=== PATIENT | female | born 1975 | race American Indian/Alaskan Native ===

== ENCOUNTER 2016-07-12 18:19 | Emergency (ER) | payer MEDICARE ==
[2016-07-12] MEDS ORDERED: TORADOL IV ONE (20:14)
[2016-07-12] MEDS ORDERED: DILAUDID IV ONE (20:14)
[2016-07-12] MEDS ORDERED: NACL 0.9% 1000 ML 1,000 ML IV ONE (20:14)
[2016-07-12] MEDS ORDERED: ZOFRAN IV ONE (20:14)
[2016-07-12] MEDS ORDERED: NORMODYNE IV ONE (20:31)
--- NOTE | 2016-07-12 20:32 | Emergency Department Report ---
ED Abdominal Pain HPI - General Chief Complaint: Abdominal Pain Stated Complaint: ABD PAIN Time Seen by Provider: 07/12/16 19:50 Source: patient, police Mode of arrival: Stretcher Limitations: No Limitations - History of Present Illness MD Complaint: abdominal pain -: Gradual Radiation: none Severity scale (0 -10): 4 Quality: cramping, aching Consistency: intermittent Improves With: nothing Worsens With: nothing Associated Symptoms: nausea, vomiting. denies: diarrhea, fever, chills, constipation, hematuria, anorexia - Related Data Previous Rx's Medication Instructions Recorded Last Taken Type Glimepiride 1 mg PO DAILY #60 tablet 07/12/16 Unknown Rx Insulin Glargine [Lantus VIAL] 12 unit SUB-Q QHS #30 units 07/12/16 Unknown Rx cloNIDine [Catapres] 0.2 mg PO BID #60 tablet 07/12/16 Unknown Rx Allergies Allergy/AdvReac Type Severity Reaction Status Date / Time bee venom (honey bee) Allergy Severe Anaphylaxis Verified 11/11/15 22:01 ED Review of Systems ROS: Stated complaint: ABD PAIN Other details as noted in HPI Comment: All other systems reviewed and negative ED Past Medical Hx - Past Medical History Hx Hypertension: Yes Hx Congestive Heart Failure: No Hx Diabetes: (GDM) Hx Deep Vein Thrombosis: No Hx Renal Disease: No Hx Sickle Cell Disease: No Hx Seizures: No Hx Psychiatric Treatment: Yes (anxiety) Hx Asthma: No Hx COPD: No Hx HIV: No Additional medical history: SICKLE CELL TRAIT - Surgical History Additional Surgical History: 4 c-sections - Social History Smoking Status: Never Smoker Substance Use Type: Alcohol - Medications Home Medications: Home Medications Medication Instructions Recorded Confirmed Last Taken Type Glimepiride 1 mg PO DAILY #60 tablet 07/12/16 Unknown Rx Insulin Glargine [Lantus VIAL] 12 unit SUB-Q QHS #30 units 07/12/16 Unknown Rx cloNIDine [Catapres] 0.2 mg PO BID #60 tablet 07/12/16 Unknown Rx ED Physical Exam - General Limitations: No Limitations General appearance: alert, in no apparent distress - Head Head exam: Present: atraumatic, normocephalic - Eye Eye exam: Present: normal appearance - ENT ENT exam: Present: mucous membranes moist - Neck Neck exam: Present: normal inspection - Respiratory Respiratory exam: Present: normal lung sounds bilaterally. Absent: respiratory distress - Cardiovascular Cardiovascular Exam: Present: regular rate, normal rhythm. Absent: systolic murmur, diastolic murmur, rubs, gallop - GI/Abdominal GI/Abdominal exam: Present: soft, tenderness, normal bowel sounds. Absent: distended, guarding, rebound, rigid - Extremities Exam Extremities exam: Present: normal inspection - Back Exam Back exam: Present: normal inspection - Neurological Exam Neurological exam: Present: alert, oriented X3 - Psychiatric Psychiatric exam: Present: normal affect, normal mood - Skin Skin exam: Present: warm, dry, intact, normal color. Absent: rash ED Course Vital Signs 07/12/16 07/12/16 07/12/16 19:24 22:11 22:12 Temperature 97.6 F Pulse Rate 83 Respiratory 20 20 Rate Blood Pressure 187/112 O2 Sat by Pulse 98 Oximetry 07/12/16 22:13 Temperature Pulse Rate 90 Respiratory Rate Blood Pressure 145/112 O2 Sat by Pulse Oximetry ED Medical Decision Making - Lab Data Result diagrams: 07/12/16 20:27 07/12/16 20:27 - Medical Decision Making Patient doing well, tolerating po here in the ER, labs negative except for hyperglycemia , ct abd and pelvis with no acute findings, Will dc and follow up, need close follow up for her DM and HTN Critical care attestation.: If time is entered above; I have spent that time in minutes in the direct care of this critically ill patient, excluding procedure time. ED Disposition Clinical Impression: Uncontrolled hypertension, Abdominal pain Disposition: DISCHARGED TO HOME OR SELFCARE Is pt being admited?: No Does the pt Need Aspirin: No Condition: Good Instructions: Abdominal Pain (ED), Hypertension (ED) Prescriptions: Insulin Glargine [Lantus VIAL] 12 unit SUB-Q QHS #30 units cloNIDine [Catapres] 0.2 mg PO BID #60 tablet Glimepiride 1 mg PO DAILY #60 tablet Referrals: PRIMARY CARE,MD [Primary Care Provider] - 3-5 Days
[2016-07-12 20:41] LABS: Basophils % (Auto) 1.2 % (0.0-1.8); Eosinophils % (Auto) 0.9 % (0.0-4.3); Hematocrit 44.5 % (30.3-42.9); Hemoglobin 15.1 gm/dl (10.1-14.3); Mean Corpuscular HGB Conc 34 % (30-34); Mean Corpuscular Hemoglobin 30 pg (28-32); Mean Corpuscular Volume 87 fl (79-97); Platelet Count 205 K/mm3 (140-440); Red Blood Count 5.09 M/mm3 (3.65-5.03); Red Cell Distribution Width 13.6 % (13.2-15.2); White Blood Count 7.6 K/mm3 (4.5-11.0)
[2016-07-12 20:47] LABS: Bilirubin,Urine NEG (Negative); Blood,Urine NEG (Negative); Ketones,Urine TR mg/dL (Negative); Leukocyte Esterase,Urine NEG (Negative); Nitrite,Urine NEG (Negative); Protein,Urine <15 mg/dL mg/dL (Negative); Urobilinogen,Urine < 2.0 mg/dL (<2.0)
[2016-07-12 21:04] LABS: Anion Gap 20 mmol/L; Blood Urea Nitrogen 10 mg/dL (7-17); Carbon Dioxide 26 mmol/L (22-30); Chloride 95.2 mmol/L (98-107); Glucose 396 mg/dL (65-100); Lipase 13 units/L (13-60); Sodium 137 mmol/L (137-145)
--- NOTE | 2016-07-12 22:05 | Cat Scan Report ---
FINAL REPORT PROCEDURE: CT ABDOMEN PELVIS WO CON TECHNIQUE: Computerized axial tomography of the abdomen and pelvis was performed without intravenous contrast. HISTORY: Abdominal Pain COMPARISON: No prior studies are available for comparison. FINDINGS: Visualized lower thorax: No significant abnormality. Liver: Enlargement. No focal mass or biliary dilatation. Spleen: Normal size and attenuation. Gallbladder and biliary system: Normal. Pancreas: Normal. Adrenals: Normal. Kidneys: Normal. GI tract: Normal. No dilated loops of large or small bowel. Appendix is normal. Lymph nodes and mesentery: Normal. Vasculature: Normal. Bladder: Normal. Reproductive organs: Normal uterus. Left adnexal cyst measuring 3.5 cm. Peritoneum: No free fluid. Musculoskeletal structures: No significant abnormality. Other: None. IMPRESSION: Hepatomegaly. No biliary dilatation. Left adnexal cyst. No dilated loops of bowel.
[2016-07-13 00:10] VITALS: BP 149/88
== END 2016-07-13 | disposition home or self-care (01) ==
LOC: ED 18:19
DX: I10 Essential (primary) hypertension (principal); R10.9 Unspecified abdominal pain; F41.9 Anxiety disorder, unspecified; Z86.32 Personal history of gestational diabetes; Z91.030 Bee allergy status; Z79.4 Long term (current) use of insulin
CPT/HCPCS: 36415; 74176; 80048; 81001; 82962; 83690; 85025; 96361; 96374; 96375; 99284; J1170; J1885; J2405; J7030; J1815

== ENCOUNTER 2016-07-17 22:01 | Emergency (ER) | payer MEDICARE ==
[2016-07-18] MEDS ORDERED: FLEXERIL PO ONE (04:00)
[2016-07-18] MEDS ORDERED: MOTRIN PO ONE (04:00)
[2016-07-18] MEDS ORDERED: NORCO 5/325 PO ONE (04:00)
--- NOTE | 2016-07-18 04:40 | XRay Report ---
FINAL REPORT PROCEDURE: XR SPINE LUMBOSACRAL 2-3V TECHNIQUE: Lumbar spine radiographs, frontal and lateral views. CPT 44457 HISTORY: midline tenderness COMPARISON: No prior studies are available for comparison. FINDINGS: Alignment: Normal . Vertebral body heights/Disk spaces: Normal . Fracture(s): None . Facets: Normal . Bone mineralization: Normal . IMPRESSION: Normal Examination
--- NOTE | 2016-07-18 04:56 | Emergency Department Report ---
HPI - General Chief Complaint: Back Pain/Injury Time Seen by Provider: 07/18/16 03:55 - HPI HPI: 41-year-old female presents today with lower back pain that worsened when she lifted her son prior to arrival. Past history history of chronic back pain. Denies any recent injury or trauma. Describes her pain as 10 as tense stabbing pain that is worse with walking. He tried icy hot, Benadryl, hot water soaks without relief. Denies fever, chills, nausea, vomiting, chest pain, shortness of breath, abdominal pain. Denies numbness, weakness, paresthesias. Denies bowel or bladder incontinence. ED Past Medical Hx - Past Medical History Previous Medical History?: Yes Hx Hypertension: Yes Hx Congestive Heart Failure: No Hx Diabetes: (GDM) Hx Deep Vein Thrombosis: No Hx Renal Disease: No Hx Sickle Cell Disease: No Hx Seizures: No Hx Psychiatric Treatment: Yes (anxiety) Hx Asthma: No Hx COPD: No Hx HIV: No Additional medical history: SICKLE CELL TRAIT - Surgical History Past Surgical History?: Yes Additional Surgical History: 4 c-sections - Social History Smoking Status: Never Smoker Substance Use Type: Alcohol - Medications Home Medications: Home Medications Medication Instructions Recorded Confirmed Last Taken Type Glimepiride 1 mg PO DAILY #60 tablet 07/12/16 Unknown Rx Insulin Glargine [Lantus VIAL] 12 unit SUB-Q QHS #30 units 07/12/16 Unknown Rx cloNIDine [Catapres] 0.2 mg PO BID #60 tablet 07/12/16 Unknown Rx Cyclobenzaprine [Flexeril] 10 mg PO TID PRN #20 tablet 07/18/16 Unknown Rx Naproxen [Naprosyn] 500 mg PO BID #30 tablet 07/18/16 Unknown Rx ED Review of Systems ROS: Stated complaint: LOWER BACK PAIN Other details as noted in HPI Constitutional: denies: chills, fever, malaise Eyes: denies: eye pain ENT: denies: ear pain, throat pain, congestion Respiratory: denies: cough, shortness of breath, wheezing Cardiovascular: denies: chest pain, palpitations Endocrine: no symptoms reported Gastrointestinal: denies: abdominal pain, nausea, vomiting Musculoskeletal: back pain Neurological: denies: headache, weakness, numbness, paresthesias Physical Exam - Physical Exam Vital Signs: Vital Signs 07/17/16 22:40 Temperature 97.9 F Pulse Rate 96 H Respiratory 18 Rate Blood Pressure 149/78 O2 Sat by Pulse 97 Oximetry Physical Exam: GENERAL: The patient is well-developed and well-nourished. Patient is in NAD. HEAD: Normocephalic. Atraumatic. NECK: Full range of motion. No midline or paraspinal tenderness to palpation. BACK: Full ROM. Positive for midline tenderness to palpation of lumbar region. Positive for paraspinal tenderness to palpation of the lumbar region bilaterally. No tenderness to palpation of sciatic notch bilaterally. Negative straight leg raise bilaterally. CHEST/LUNGS: Clear to auscultation throughout. HEART/CARDIOVASCULAR: Regular rate and rhythm. No murmurs, rubs or gallops. ABDOMEN: Abdomen is soft, nontender. Bowel sounds normoactive. No guarding or rebound tenderness. EXTREMITIES: Peripheral pulses intact. Capillary refill less than 2 seconds. NEURO: Alert and oriented x 3. Normal gait. ED Course Vital Signs 07/17/16 22:40 Temperature 97.9 F Pulse Rate 96 H Respiratory 18 Rate Blood Pressure 149/78 O2 Sat by Pulse 97 Oximetry ED Medical Decision Making - Lab Data Vital Signs 07/17/16 22:40 Temperature 97.9 F Pulse Rate 96 H Respiratory 18 Rate Blood Pressure 149/78 O2 Sat by Pulse 97 Oximetry - Radiology Data Radiology results: report reviewed PROCEDURE: XR SPINE LUMBOSACRAL 2-3V TECHNIQUE: Lumbar spine radiographs, frontal and lateral views. CPT 59445 HISTORY: midline tenderness COMPARISON: No prior studies are available for comparison. FINDINGS: Alignment: Normal . Vertebral body heights/Disk spaces: Normal . Fracture(s): None . Facets: Normal . Bone mineralization: Normal . IMPRESSION: Normal Examination - Medical Decision Making 41-year-old female presents today with acute onset of chronic lower back pain. Her x-ray results reveal no fracture or dislocation. Patient reports pain control post medication. Patient is in no acute distress at this time. She will be discharged home and is encouraged to follow up with a primary care provider. She will be sent home on Flexeril and naproxen and is encouraged to return to the emergency room for any worsening symptoms. Critical care attestation.: If time is entered above; I have spent that time in minutes in the direct care of this critically ill patient, excluding procedure time. ED Disposition Clinical Impression: Low back pain Qualifiers: Chronicity: chronic Back pain laterality: midline Sciatica presence: without sciatica Qualified Code(s): M54.5 - Low back pain; G89.29 - Other chronic pain Disposition: DISCHARGED TO HOME OR SELFCARE Is pt being admited?: No Does the pt Need Aspirin: No Condition: Stable Instructions: Chronic Back Pain (ED), Muscle Strain (ED) Additional Instructions: Follow-up with primary care provider. Return to the emergency department if symptoms worsen. Prescriptions: Cyclobenzaprine [Flexeril] 10 mg PO TID PRN #20 tablet PRN Reason: Muscle Spasm Naproxen [Naprosyn] 500 mg PO BID #30 tablet Referrals: LEIGHANN JAUREGUI MD [Primary Care Provider] - 3-5 Days LELE HAMMER MD [Staff Physician] - 3-5 Days Forms: Work/School Release Form(ED) Time of Disposition: 04:59
[2016-07-18 05:27] VITALS: BP 107/76
== END 2016-07-18 05:26 | disposition home or self-care (01) ==
LOC: ED 22:01
DX: M54.5 Low back pain (principal); G89.29 Other chronic pain; I10 Essential (primary) hypertension; F41.9 Anxiety disorder, unspecified; Z86.32 Personal history of gestational diabetes; Z79.4 Long term (current) use of insulin
CPT/HCPCS: 72100

== ENCOUNTER 2016-12-19 21:07 | Emergency (ER) | payer MEDICARE ==
[2016-12-19 21:28] LABS: Eosinophils % (Auto) 1.1 % (0.0-4.3); Hemoglobin 13.9 gm/dl (10.1-14.3); Mean Corpuscular HGB Conc 34 % (30-34); Mean Corpuscular Hemoglobin 31 pg (28-32); Mean Corpuscular Volume 91 fl (79-97); Platelet Count 299 K/mm3 (140-440); Red Blood Count 4.53 M/mm3 (3.65-5.03); Red Cell Distribution Width 13.9 % (13.2-15.2); White Blood Count 10.2 K/mm3 (4.5-11.0)
[2016-12-19] MEDS ORDERED: CATAPRES PO ONE (21:43)
[2016-12-19 21:44] LABS: Anion Gap 16 mmol/L; Blood Urea Nitrogen 9 mg/dL (7-17); Calcium 9.3 mg/dL (8.4-10.2); Carbon Dioxide 29 mmol/L (22-30); Chloride 101.4 mmol/L (98-107); Glucose 89 mg/dL (65-100); Potassium 4.1 mmol/L (3.6-5.0); Sodium 142 mmol/L (137-145)
[2016-12-19 22:26] LABS: Bacteria,Urine 1+ /HPF (Negative); Bilirubin,Urine NEG (Negative); Blood,Urine NEG (Negative); Ketones,Urine NEG (Negative); Leukocyte Esterase,Urine NEG (Negative); Nitrite,Urine NEG (Negative); Protein,Urine <15 mg/dL mg/dL (Negative)
[2016-12-20] MEDS ORDERED: CATAPRES PO ONE (05:06)
[2016-12-20] MEDS ORDERED: CATAPRES ONE (05:08)
--- NOTE | 2016-12-20 06:19 | Emergency Department Report ---
HPI - General Chief Complaint: Abdominal Pain Time Seen by Provider: 12/20/16 06:07 - HPI HPI: Room 3 The patient is a 41-year-old female presented with a chief complaint of headache and abdominal pain. The patient states that she has today she's had intermittent midepigastric abdominal pain in addition to intermittent frontal headache. Patient denies nausea vomiting or diarrhea. Patient denies shortness of breath or diaphoresis. Patient denies ever having chest pain. The patient currently gives her abdominal pain score 6.5/10. Patient denies any history of fever. Location: [see above] Duration: Intermittent since yesterday Quality: Pain Severity: 6.5/10 Modifying factors: [see above] Context: [see above] Mode of transportation: The patient states she walked to the hospital and there are no visitors present ED Past Medical Hx - Past Medical History Hx Hypertension: Yes Hx Diabetes: (GDM) Hx Psychiatric Treatment: Yes (anxiety) Additional medical history: SICKLE CELL TRAIT - Surgical History Additional Surgical History: 4 c-sections - Family History Family history: no significant - Social History Smoking Status: Never Smoker Substance Use Type: None - Medications Home Medications: Home Medications Medication Instructions Recorded Confirmed Last Taken Type Glimepiride 1 mg PO DAILY #60 tablet 07/12/16 12/20/16 Unknown Rx cloNIDine [Catapres] 0.2 mg PO BID #60 tablet 07/12/16 12/20/16 12/20/16 05:00 Rx Cyclobenzaprine [Flexeril] 10 mg PO TID PRN #20 tablet 07/18/16 12/20/16 Unknown Rx Naproxen [Naprosyn] 500 mg PO BID #30 tablet 07/18/16 12/20/16 Unknown Rx Butalb/Acetamin/Caff 50-325-40 2 tab PO Q8HR PRN #10 tablet 12/20/16 Unknown Rx [Fioricet] Insulin Glargine [Lantus VIAL] 35 unit SUB-Q QHS 12/20/16 12/20/16 Unknown History traMADol [Ultram] 50 mg PO Q6HR PRN #10 tablet 12/20/16 Unknown Rx ED Review of Systems ROS: Stated complaint: HEADACHE, BACK PAIN, HEART BREATING FAST, AB PAIN Other details as noted in HPI Comment: All other systems reviewed and negative Constitutional: denies: chills, fever Eyes: denies: eye pain, eye discharge, vision change ENT: denies: ear pain, throat pain Respiratory: denies: cough, shortness of breath, wheezing Cardiovascular: denies: chest pain, palpitations Endocrine: no symptoms reported Gastrointestinal: abdominal pain. denies: nausea, vomiting, diarrhea Genitourinary: denies: urgency, dysuria, discharge Musculoskeletal: denies: back pain, joint swelling, arthralgia Skin: denies: rash, lesions Neurological: headache Psychiatric: denies: anxiety, depression Hematological/Lymphatic: denies: easy bleeding, easy bruising Physical Exam - Physical Exam Vital Signs: Vital Signs 12/19/16 12/19/16 12/19/16 21:36 21:47 22:26 Temperature 98.7 F Pulse Rate 98 H 98 H Respiratory 16 Rate Blood Pressure 227/147 227/147 Blood Pressure 200/117 [Left] O2 Sat by Pulse 97 Oximetry 12/20/16 12/20/16 12/20/16 02:02 03:58 05:01 Temperature 98.2 F 98.2 F 97.9 F Pulse Rate 79 80 83 Respiratory 20 20 18 Rate Blood Pressure 231/123 Blood Pressure 160/80 199/118 [Left] O2 Sat by Pulse 100 100 Oximetry 12/20/16 05:05 Temperature Pulse Rate 82 Respiratory Rate Blood Pressure 199/116 Blood Pressure [Left] O2 Sat by Pulse Oximetry Physical Exam: GENERAL: The patient is well-developed well-nourished female lying on stretcher not appearing to be in acute distress. [] HEENT: Normocephalic. Atraumatic. Extraocular motions are intact. Patient has moist mucous membranes. NECK: Supple. No meningitic signs are noted. Trachea midline CHEST/LUNGS: Clear to auscultation. There is no respiratory distress noted. HEART/CARDIOVASCULAR: Regular. There is no tachycardia. There is no gallop rub or murmur. ABDOMEN: Abdomen is soft, with mild tenderness to palpation in the epigastric region only. Patient has normal bowel sounds. There is no abdominal distention. SKIN: There is no rash. There is no edema. There is no diaphoresis. NEURO: The patient is awake, alert, and oriented. The patient is cooperative. The patient has no focal neurologic deficits. The patient has normal speech. Cranial nerves II through XII grossly intact, no drift MUSCULOSKELETAL: There is no evidence of acute injury. ED Course Vital Signs 12/19/16 12/19/16 12/19/16 21:36 21:47 22:26 Temperature 98.7 F Pulse Rate 98 H 98 H Respiratory 16 Rate Blood Pressure 227/147 227/147 Blood Pressure 200/117 [Left] O2 Sat by Pulse 97 Oximetry 12/20/16 12/20/16 12/20/16 02:02 03:58 05:01 Temperature 98.2 F 98.2 F 97.9 F Pulse Rate 79 80 83 Respiratory 20 20 18 Rate Blood Pressure 231/123 Blood Pressure 160/80 199/118 [Left] O2 Sat by Pulse 100 100 Oximetry 12/20/16 05:05 Temperature Pulse Rate 82 Respiratory Rate Blood Pressure 199/116 Blood Pressure [Left] O2 Sat by Pulse Oximetry ED Medical Decision Making - Lab Data Result diagrams: 12/19/16 21:20 12/19/16 21:20 Laboratory Tests 12/19/16 12/19/16 12/19/16 21:20 21:20 21:22 WBC 10.2 RBC 4.53 Hgb 13.9 Hct 41.0 MCV 91 MCH 31 MCHC 34 RDW 13.9 Plt Count 299 Lymph % (Auto) 29.0 Rooks % (Auto) 7.8 H Eos % (Auto) 1.1 Baso % (Auto) 1.0 Lymph # 3.0 Rooks # 0.8 Eos # 0.1 Baso # 0.1 Seg Neutrophils % 61.1 Seg Neutrophils # 6.3 Sodium 142 Potassium 4.1 Chloride 101.4 Carbon Dioxide 29 Anion Gap 16 BUN 9 Creatinine 1.0 Estimated GFR > 60 BUN/Creatinine Ratio 9.00 Glucose 89 POC Glucose 72 Calcium 9.3 Total Bilirubin Direct Bilirubin Indirect Bilirubin AST ALT Alkaline Phosphatase Troponin T < 0.010 Total Protein Albumin Albumin/Globulin Ratio Lipase Urine Color Urine Turbidity Urine pH Ur Specific [place] Urine Protein Urine Glucose (UA) Urine Ketones Urine Blood Urine Nitrite Urine Bilirubin Urine Urobilinogen Ur Leukocyte Esterase Urine WBC (Auto) Urine RBC (Auto) U Epithel Cells (Auto) Urine Bacteria (Auto) Urine HCG, Qual 12/19/16 12/20/16 12/20/16 21:36 00:33 01:22 WBC RBC Hgb Hct MCV MCH MCHC RDW Plt Count Lymph % (Auto) Rooks % (Auto) Eos % (Auto) Baso % (Auto) Lymph # [place] # Eos # Baso # Seg Neutrophils % Seg Neutrophils # Sodium Potassium Chloride Carbon Dioxide Anion Gap BUN Creatinine Estimated GFR BUN/Creatinine Ratio Glucose POC Glucose 150 H Calcium Total Bilirubin Direct Bilirubin Indirect Bilirubin AST ALT Alkaline Phosphatase Troponin T < 0.010 Total Protein Albumin Albumin/Globulin Ratio Lipase Urine Color Yellow Urine Turbidity Clear Urine pH 7.0 Ur Specific [place] 1.011 Urine Protein <15 mg/dl Urine Glucose (UA) Neg Urine Ketones Neg Urine Blood Neg Urine Nitrite Neg Urine Bilirubin Neg Urine Urobilinogen 4.0 Ur Leukocyte Esterase Neg Urine WBC (Auto) 4.0 Urine RBC (Auto) 3.0 U Epithel Cells (Auto) 4.0 Urine Bacteria (Auto) 1+ Urine HCG, Qual Negative 12/20/16 12/20/16 12/20/16 03:39 03:39 06:42 WBC RBC Hgb Hct MCV MCH MCHC RDW Plt Count Lymph % (Auto) [place] % (Auto) Eos % (Auto) Baso % (Auto) Lymph # [place] # Eos # Baso # Seg Neutrophils % Seg Neutrophils # Sodium Potassium Chloride Carbon Dioxide Anion Gap BUN Creatinine Estimated GFR BUN/Creatinine Ratio Glucose POC Glucose 181 H Calcium Total Bilirubin 0.70 Direct Bilirubin 0.2 Indirect Bilirubin 0.5 AST 12 ALT 11 Alkaline Phosphatase 96 Troponin T < 0.010 Total Protein 7.5 Albumin 3.7 L Albumin/Globulin Ratio 1.0 Lipase 11 L Urine Color Urine Turbidity Urine pH Ur Specific [place] Urine Protein Urine Glucose (UA) Urine Ketones Urine Blood Urine Nitrite Urine Bilirubin Urine Urobilinogen Ur Leukocyte Esterase Urine WBC (Auto) Urine RBC (Auto) U Epithel Cells (Auto) Urine Bacteria (Auto) Urine HCG, Qual 12/20/16 09:22 WBC RBC Hgb Hct MCV MCH MCHC RDW Plt Count Lymph % (Auto) [place] % (Auto) Eos % (Auto) Baso % (Auto) Lymph # [place] # Eos # Baso # Seg Neutrophils % Seg Neutrophils # Sodium Potassium Chloride Carbon Dioxide Anion Gap BUN Creatinine Estimated GFR BUN/Creatinine Ratio Glucose POC Glucose 204 H Calcium Total Bilirubin Direct Bilirubin Indirect Bilirubin AST ALT Alkaline Phosphatase Troponin T Total Protein Albumin Albumin/Globulin Ratio Lipase Urine Color Urine Turbidity Urine pH Ur Specific [place] Urine Protein Urine Glucose (UA) Urine Ketones Urine Blood Urine Nitrite Urine Bilirubin Urine Urobilinogen Ur Leukocyte Esterase Urine WBC (Auto) Urine RBC (Auto) U Epithel Cells (Auto) Urine Bacteria (Auto) Urine HCG, Qual - EKG Data -: EKG Interpreted by Me EKG shows normal: sinus rhythm Rate: normal - EKG Data When compared to previous EKG there are: no significant change Interpretation: nonspecific ST-T wave kalpesh (T-wave inversion in lead 3) - Radiology Data Radiology results: report reviewed (CT head, CT abdomen and pelvis), image reviewed (CT head, CT abdomen and pelvis) CT head (read by radiologist)-no acute intracranial CT abnormality Pelvis (read by radiologist)-no acute CT abnormality with fatty liver and few small prominent nonspecific right lower quadrant mesenteric lymph nodes. Mesenteric adenitis may be considered as a diagnosis of exclusion in an appropriate setting. And for reduction of physiologic left adnexal/ovarian cyst. - Differential Diagnosis pancreatitis, gastritis, biliary colic, aortic dissection, ICH, ACS, headac Critical care attestation.: If time is entered above; I have spent that time in minutes in the direct care of this critically ill patient, excluding procedure time. ED Disposition Clinical Impression: Uncontrolled hypertension, Headache, Abdominal pain Disposition: DC-01 TO HOME OR SELFCARE Is pt being admited?: No Does the pt Need Aspirin: No Condition: Stable Instructions: Abdominal Pain (ED), Hypertension (ED) Additional Instructions: Return to the emergency department immediately should you develop worsening symptoms, fever, inability to tolerate food or liquid or any other concerns. Prescriptions: Butalb/Acetamin/Caff 50-325-40 [Fioricet] 2 tab PO Q8HR PRN #10 tablet PRN Reason: Headache traMADol [Ultram] 50 mg PO Q6HR PRN #10 tablet PRN Reason: Pain Referrals: LEIGHANN JAUREGUI MD [Primary Care Provider] - 3-5 Days Time of Disposition: 10:26
[2016-12-20 06:28] LABS: Albumin 3.7 g/dL (3.9-5); Bilirubin,Direct 0.2 mg/dL (0-0.2); Bilirubin,Indirect 0.5 mg/dL; Bilirubin,Total 0.7 mg/dL (0.1-1.2); Total Protein 7.5 g/dL (6.3-8.2)
[2016-12-20] MEDS ORDERED: NACL ONE (06:40)
--- NOTE | 2016-12-20 09:24 | Cat Scan Report ---
CT HEAD WITHOUT CONTRAST INDICATION: Hypertension, headache. COMPARISON: None similar. FINDINGS: Noncontrast head CT demonstrates normal, symmetric ventricles and sulci without acute or recent infarct, hemorrhage, mass effect or midline shift. No abnormal extra-axial fluid collections. Posterior fossa structures and basilar cisterns appear within normal limits. Left cataract surgery. Slight rightward nasal septal bowing. Clear paranasal sinuses and mastoid air cells. Intact calvarium. Normal overlying scalp soft tissues. Few radiopaque dental material and missing teeth incidentally noted. CONCLUSION: No acute intracranial CT abnormality, as described. Thank you for the opportunity to participate in this patient's care.
[2016-12-20 09:40] VITALS: BP 164/100
--- NOTE | 2016-12-20 10:21 | Cat Scan Report ---
CT ABDOMEN AND PELVIS WITH CONTRAST INDICATION: Epigastric abdominal pain, hypertension. COMPARISON: 07/12/2016. FINDINGS: Abdomen and pelvis CT performed following intravenous administration of 100 cc of Omnipaque 300. LUNG BASES: Borderline cardiomegaly. Slight nonspecific distal esophageal prominence/thickening. ABDOMEN: Mild diffuse fatty hepatic infiltration. Otherwise unremarkable liver, spleen, gallbladder, pancreas, adrenals, aorta, IVC and kidneys. Few right lower quadrant lymph nodes measure up to 1.3 cm, axial image 45, series 2 and approximately 5 in number. No size significant retroperitoneal lymphadenopathy noted. Nonopacified GI tract evaluation limited, though grossly nonobstructive. PELVIS: Possible Essure device in the right adnexa as on axial image 69, series 2 again noted. Left adnexal/ovarian cyst now smaller at approximately 1.5 cm, axial image 75. Grossly unremarkable uterus, urinary bladder and the rectosigmoid. No free fluid or significant adenopathy. Mild sclerosis along iliac aspect of bilateral SI joints noted. Mild lower thoracic and lower lumbar degenerative spurring at few levels as well. CONCLUSION: 1. No acute CT abnormality with fatty liver and few small/prominent nonspecific right lower quadrant mesenteric lymph nodes noted, as described. Mesenteric adenitis may be considered as a diagnosis of exclusion in an appropriate setting. 2. Interval reduction of physiologic left adnexal/ovarian cyst. 3. Various other incidental findings, including unilateral/right-sided possible Essure device. AUTOMATIC OPERATOR correlation suggested. Thank you for the opportunity to participate in this patient's care.
== END 2016-12-20 10:44 | disposition home or self-care (01) ==
LOC: ED 21:07
DX: I10 Essential (primary) hypertension (principal); R10.13 Epigastric pain
CPT/HCPCS: 36415; 70450; 74177; 80048; 80074; 81001; 81025; 82962; 83690; 84484; 85025; 93005; 93010; 99284; Q9967

== ENCOUNTER 2017-02-13 11:43 | Day surgery (SDC) | payer MEDICARE ==
[~2017-02-13 11:43] MED LIST: MYDRIACYL ONE; NEOFRIN ONE
[2017-02-13] MEDS ORDERED: NEOFRIN OS ONE (12:16)
[2017-02-13] MEDS ORDERED: MYDRIACYL OS ONE (12:16)
[2017-02-13] MEDS ORDERED: IOPIDINE OS ONE ×2 (12:16→13:13)
[2017-02-13 13:20] VITALS: BP 178/92
== END 2017-02-13 13:15 | disposition home or self-care (01) ==
LOC: OR 11:43
PROVIDERS: ATTEND Specialist
DX: H26.492 Other secondary cataract, left eye (principal); E11.9 Type 2 diabetes mellitus without complications; Z98.890 Other specified postprocedural states
CPT/HCPCS: 82962

== ENCOUNTER 2017-05-13 11:23 | Emergency (ER) | payer MEDICARE ==
[2017-05-13 11:37] VITALS: BP 150/118
--- NOTE | 2017-05-13 18:26 | Emergency Department Report ---
ED Lower Extremity HPI - General Chief Complaint: Extremity Injury, Lower Stated Complaint: LEFT KNEE PAIN Time Seen by Provider: 05/13/17 18:15 Source: patient Mode of arrival: Ambulatory Limitations: No Limitations - History of Present Illness Complaint: knee injury -: week(s) (2 weeks) Injury: Knee: Left Type of Injury: other (patient does not remember any injury.) Severity: moderate Severity scale (0 -10): 6 Improves With: NSAID, rest Worsens With: weight bearing, movement - Related Data Home Medications Medication Instructions Recorded Confirmed Last Taken Insulin Glargine [Lantus VIAL] 35 unit SUB-Q QHS 12/20/16 02/07/17 Unknown Insulin Aspart [NovoLOG Flexpen] 15 units SQ QAM 02/07/17 02/07/17 Unknown cloNIDine [Catapres] 0.2 mg PO TID 02/07/17 02/07/17 Unknown Allergies Allergy/AdvReac Type Severity Reaction Status Date / Time venom-honey bee Allergy Severe Anaphylaxis Verified 11/11/15 22:01 [bee venom (honey bee)] ED Review of Systems ROS: Stated complaint: LEFT KNEE PAIN Other details as noted in HPI Comment: All other systems reviewed and negative Constitutional: denies: chills, fever Respiratory: denies: cough, orthopnea, shortness of breath, SOB with exertion, SOB at rest, wheezing Musculoskeletal: denies: back pain ED Past Medical Hx - Past Medical History Hx Hypertension: Yes (x 3 yrs) Hx Congestive Heart Failure: No Hx Diabetes: Yes (x 3 yrs) Hx Deep Vein Thrombosis: No Hx Renal Disease: No Hx Sickle Cell Disease: Yes (Trait only) Hx Seizures: No Hx Psychiatric Treatment: Yes (anxiety) Hx Asthma: No Hx COPD: No Hx HIV: No Additional medical history: SICKLE CELL TRAIT - Surgical History Additional Surgical History: 4 c-sections - Social History Smoking Status: Never Smoker Substance Use Type: None - Medications Home Medications: Home Medications Medication Instructions Recorded Confirmed Last Taken Type Insulin Glargine [Lantus VIAL] 35 unit SUB-Q QHS 12/20/16 02/07/17 Unknown History Insulin Aspart [NovoLOG Flexpen] 15 units SQ QAM 02/07/17 02/07/17 Unknown History cloNIDine [Catapres] 0.2 mg PO TID 02/07/17 02/07/17 Unknown History ED Physical Exam - General Limitations: No Limitations General appearance: alert, in no apparent distress - Head Head exam: Present: atraumatic, normocephalic - Eye Eye exam: Present: normal appearance - ENT ENT exam: Present: normal exam, normal orophraynx, mucous membranes moist - Neck Neck exam: Present: normal inspection, full ROM. Absent: tenderness, meningismus - Respiratory Respiratory exam: Present: normal lung sounds bilaterally. Absent: respiratory distress, wheezes, rales, rhonchi, chest wall tenderness, decreased breath sounds, prolonged expiratory - Cardiovascular Cardiovascular Exam: Present: regular rate, normal rhythm, normal heart sounds - GI/Abdominal GI/Abdominal exam: Present: soft, normal bowel sounds. Absent: distended, tenderness, guarding, rebound, rigid, organomegaly, mass, bruit, pulsatile mass , hernia - Extremities Exam Extremities exam: Present: normal inspection, full ROM, normal capillary refill - Expanded Lower Extremity Exam Left Knee exam: Present: normal inspection, full ROM, tenderness. Absent: swelling, abrasion, laceration, ecchymosis, deformity, crepidus, dislocation, erythema, effusion, pain w/ pronation/supination, posterior draw sign Lower Leg exam: Present: normal inspection, full ROM Neuro vascular tendon exam: Present: no vascular compromise Gait: Positive: observed and normal - Back Exam Back exam: Present: normal inspection, full ROM. Absent: tenderness, muscle spasm, paraspinal tenderness - Neurological Exam Neurological exam: Present: alert, oriented X3, CN II-XII intact, normal gait - Skin Skin exam: Present: warm, intact, normal color ED Course Vital Signs 05/13/17 11:33 Temperature 97.9 F Pulse Rate 101 H Respiratory 20 Rate Blood Pressure 150/118 O2 Sat by Pulse 96 Oximetry ED Lower Extremity MDM - Radiology Data Radiology results: image reviewed interpreted by me: Left knee x-ray showed joint narrowing but no acute finding. Critical care attestation.: If time is entered above; I have spent that time in minutes in the direct care of this critically ill patient, excluding procedure time. ED Disposition Clinical Impression: Knee sprain Disposition: DC-01 TO HOME OR SELFCARE Is pt being admited?: No Condition: Stable Referrals: PRIMARY CARE,MD [Primary Care Provider] - 3-5 Days
--- NOTE | 2017-05-13 20:11 | XRay Report ---
FINAL REPORT PROCEDURE: XR KNEE 3V LT TECHNIQUE: LEFT knee radiographs, AP, lateral and sunrise views. CPT 92110 HISTORY: left knee pain COMPARISON: No prior studies are available for comparison. FINDINGS: Fracture (s) and/or Dislocation(s): None . Alignment: Normal . Joint space(s): There appears to be narrowing of the patellofemoral compartment. Mild degree osteophyte formation is noted. There is no evidence of joint effusion. Soft tissues: Normal . Bone mineralization: Normal . Foreign bodies: None . IMPRESSION: No acute fracture. Mild degree osteoarthritis.
== END 2017-05-13 19:32 | disposition home or self-care (01) ==
LOC: ED 11:23
DX: S83.8X2A Sprain of other specified parts of left knee, initial encounter (principal); I10 Essential (primary) hypertension; E11.9 Type 2 diabetes mellitus without complications; F41.9 Anxiety disorder, unspecified; Z79.4 Long term (current) use of insulin; Z91.030 Bee allergy status; X58.XXXA Exposure to other specified factors, initial encounter; Y93.89 Activity, other specified; Y92.89 Other specified places as the place of occurrence of the external cause; Y99.8 Other external cause status
CPT/HCPCS: 99283

== ENCOUNTER 2017-10-16 11:00 | Outpatient (CLI) | payer MEDICARE | END 2017-10-16 11:01 | disposition home or self-care (01) | LOC: SLR 11:00 | PROVIDERS: ATTEND Otolaryngology | DX: G47.31 Primary central sleep apnea (principal); I10 Essential (primary) hypertension; E11.9 Type 2 diabetes mellitus without complications; M19.90 Unspecified osteoarthritis, unspecified site; Z91.030 Bee allergy status | CPT/HCPCS: G0399 ==

== ENCOUNTER 2017-11-01 22:38 | Emergency (ER) | payer MEDICARE ==
[2017-11-01] MEDS ORDERED: CATAPRES PO ONE (23:56)
[2017-11-01] MEDS ORDERED: MOTRIN PO ONE (23:59)
[2017-11-02 00:32] LABS: HCG Qualitative,Urine Negative (Negative)
[2017-11-02 01:18] VITALS: BP 150/88
--- NOTE | 2017-11-02 01:32 | XRay Report ---
FINAL REPORT EXAM: XR KNEE 3V LT HISTORY: left knee pain TECHNIQUE: Three views of the left knee were obtained and compared to the study of 05/13/2017. FINDINGS: There is mild narrowing of the medial and lateral compartments with marginal spurring medially. There is mild narrowing of the patellofemoral compartment with patellar spurring superiorly. There is no evidence of fracture or joint effusion. The soft tissues otherwise well maintained. IMPRESSION: Tricompartmental arthritic changes. No evidence of fracture or joint effusion.
--- NOTE | 2017-11-02 02:30 | Emergency Department Report ---
ED Extremity Problem HPI - General Chief complaint: Extremity Injury, Lower Stated complaint: LEFT KNEE IS SWOLLEN Time Seen by Provider: 11/02/17 02:05 Source: patient Mode of arrival: Ambulatory Limitations: No Limitations - History of Present Illness Initial comments: 42-year-old -[place] female comes in complaint of left knee pain 3 weeks. Patient denies any injury. She has not been taking her p.m. clonidine. She denies any headache nor other discomfort. Patient reports that pain is worse when she gets out of bed. She reports it is difficult to walk. Patient does have a past medical history of hypertension and diabetes. She is insulin- dependent. MD Complaint: extremity pain, joint swelling -: week(s) (3) Location: left, knee Severity scale (0 -10): 10 Quality: aching, sharp Consistency: constant Improves with: rest Worsens with: weight bearing, walking, palpation Associated Symptoms: denies other symptoms - Related Data Home Medications Medication Instructions Recorded Confirmed Last Taken Insulin Glargine [Lantus VIAL] 35 unit SUB-Q QHS 12/20/16 02/07/17 Unknown Insulin Aspart [NovoLOG Flexpen] 15 units SQ QAM 02/07/17 02/07/17 Unknown cloNIDine [Catapres] 0.2 mg PO TID 02/07/17 02/07/17 Unknown Previous Rx's Medication Instructions Recorded Last Taken Type Naproxen [Naprosyn] 500 mg PO BID #14 tablet 05/13/17 Unknown Rx Ondansetron [Zofran Odt] 4 mg PO Q8HR PRN #14 tab.rapdis 05/13/17 Unknown Rx traMADol [Ultram 50 MG tab] 50 mg PO Q4HR PRN #14 tablet 05/13/17 Unknown Rx Naproxen [Naprosyn] 500 mg PO BID #20 tablet 11/02/17 Unknown Rx Allergies Allergy/AdvReac Type Severity Reaction Status Date / Time venom-honey bee Allergy Severe Anaphylaxis Verified 11/11/15 22:01 [bee venom (honey bee)] ED Review of Systems ROS: Stated complaint: LEFT KNEE IS SWOLLEN Other details as noted in HPI Musculoskeletal: joint swelling (left knee), arthralgia (left knee) ED Past Medical Hx - Past Medical History Hx Hypertension: Yes (x 3 yrs) Hx Congestive Heart Failure: No Hx Diabetes: Yes Hx Deep Vein Thrombosis: No Hx Renal Disease: No Hx Sickle Cell Disease: Yes (Trait only) Hx Arthritis: Yes Hx Seizures: No Hx Psychiatric Treatment: Yes (anxiety) Hx Asthma: No Hx COPD: No Hx HIV: No Additional medical history: SICKLE CELL TRAIT - Surgical History Additional Surgical History: 4 c-sections - Social History Smoking Status: Never Smoker Substance Use Type: None - Medications Home Medications: Home Medications Medication Instructions Recorded Confirmed Last Taken Type Insulin Glargine [Lantus VIAL] 35 unit SUB-Q QHS 12/20/16 02/07/17 Unknown History Insulin Aspart [NovoLOG Flexpen] 15 units SQ QAM 02/07/17 02/07/17 Unknown History cloNIDine [Catapres] 0.2 mg PO TID 02/07/17 02/07/17 Unknown History Naproxen [Naprosyn] 500 mg PO BID #14 tablet 05/13/17 Unknown Rx Ondansetron [Zofran Odt] 4 mg PO Q8HR PRN #14 tab.rapdis 05/13/17 Unknown Rx traMADol [Ultram 50 MG tab] 50 mg PO Q4HR PRN #14 tablet 05/13/17 Unknown Rx Naproxen [Naprosyn] 500 mg PO BID #20 tablet 11/02/17 Unknown Rx ED Physical Exam - General Limitations: No Limitations General appearance: alert, in no apparent distress - Neck Neck exam: Present: full ROM - Expanded Lower Extremity Exam Left Hip exam: Present: full ROM. Absent: tenderness Upper Leg exam: Present: normal inspection, full ROM Knee exam: Present: full ROM, tenderness (lateral aspect), swelling, crepidus, full knee extension. Absent: abrasion, laceration, ecchymosis, deformity, erythema, effusion Lower Leg exam: Present: full ROM. Absent: tenderness Ankle exam: Present: normal inspection, full ROM. Absent: tenderness Foot/Toe exam: Present: normal inspection, full ROM. Absent: tenderness Neuro vascular tendon exam: Present: no vascular compromise. Absent: pulse deficit - Neurological Exam Neurological exam: Present: alert, oriented X3 - Psychiatric Psychiatric exam: Present: normal affect, normal mood - Skin Skin exam: Present: warm, dry, intact, normal color. Absent: rash ED Course Vital Signs 11/01/17 11/02/17 11/02/17 23:46 00:06 01:17 Temperature 98.4 F Pulse Rate 101 H 101 H 98 H Respiratory 18 18 Rate Blood Pressure 186/120 186/120 Blood Pressure 150/88 [Right] O2 Sat by Pulse 100 100 Oximetry ED Medical Decision Making - Radiology Data Radiology results: report reviewed, image reviewed FINAL REPORT EXAM: XR KNEE 3V LT HISTORY: left knee pain TECHNIQUE: Three views of the left knee were obtained and compared to the study of 05/13/2017. FINDINGS: There is mild narrowing of the medial and lateral compartments with marginal spurring medially. There is mild narrowing of the patellofemoral compartment with patellar spurring superiorly. There is no evidence of fracture or joint effusion. The soft tissues otherwise well maintained. IMPRESSION: Tricompartmental arthritic changes. No evidence of fracture or joint effusion. Transcribed By: RB Dictated By: MARTHA RICO MD Electronically Authenticated By: MARTHA RICO MD Signed Date/Time: 11/02/17126 DD/ 6 TD/TT: 11/02/17126 - Medical Decision Making Patient has been evaluated by this provider in fast track. Patient has been given ibuprofen for pain management. X-rays of the knees shows tricompartment arthritic changes. We'll discharge patient on naproxen 500 mg twice a day as needed for pain. Discussed the patient to follow up with orthopedist. Critical care attestation.: If time is entered above; I have spent that time in minutes in the direct care of this critically ill patient, excluding procedure time. ED Disposition Clinical Impression: Uncontrolled hypertension Degenerative joint disease of knee, left Qualifiers: Osteoarthritis type: primary Qualified Code(s): M17.12 - Unilateral primary osteoarthritis, left knee Disposition: - TO HOME OR SELFCARE Is pt being admited?: No Does the pt Need Aspirin: No Condition: Stable Instructions: Hypertension (ED), Osteoarthritis (ED) Additional Instructions: Please take her hypertensive medication and diabetic medication as prescribed by Dr. Campo. Please take pain medication as needed. If her symptoms persist or gets worse please follow-up with orthopedic provider. Prescriptions: Naproxen [Naprosyn] 500 mg PO BID #20 tablet Referrals: LEIGHANN JAUREGUI MD [Primary Care Provider] - 3-5 Days MARTHA RODRIGUEZ MD [Staff Physician] - 3-5 Days
== END 2017-11-02 03:06 | disposition home or self-care (01) ==
LOC: ED 22:38
DX: M17.12 Unilateral primary osteoarthritis, left knee (principal); I10 Essential (primary) hypertension; E11.9 Type 2 diabetes mellitus without complications; M19.90 Unspecified osteoarthritis, unspecified site; Z79.4 Long term (current) use of insulin; Z91.030 Bee allergy status
CPT/HCPCS: 81025; 99284

== ENCOUNTER 2017-11-26 13:22 | Emergency (ER) | payer MEDICARE ==
--- NOTE | 2017-11-26 14:13 | Emergency Department Report ---
ED Dizziness HPI - General Chief Complaint: Dizziness Stated Complaint: DIZZY Time Seen by Provider: 11/26/17 14:12 Source: patient Mode of arrival: Stretcher Limitations: No Limitations - History of Present Illness Initial Comments: Patient complained of dizziness and lightheadedness which started this afternoon. She also feels tired with generalized weakness. MD Complaint: dizziness, lightheadedness -: Sudden, This afternoon Timing: sudden onset Description: lightheadedness History of Same: No History of Trauma: No Severity: mild Improves With: nothing Worsens With: nothing Associated Symptoms: chest pain - Related Data Home Medications Medication Instructions Recorded Confirmed Last Taken Insulin Glargine [Lantus VIAL] 35 unit SUB-Q QHS 12/20/16 02/07/17 Unknown Insulin Aspart [NovoLOG Flexpen] 15 units SQ QAM 02/07/17 02/07/17 Unknown cloNIDine [Catapres] 0.2 mg PO TID 02/07/17 02/07/17 Unknown Previous Rx's Medication Instructions Recorded Last Taken Type Naproxen [Naprosyn] 500 mg PO BID #14 tablet 05/13/17 Unknown Rx Ondansetron [Zofran Odt] 4 mg PO Q8HR PRN #14 tab.rapdis 05/13/17 Unknown Rx traMADol [Ultram 50 MG tab] 50 mg PO Q4HR PRN #14 tablet 05/13/17 Unknown Rx Naproxen [Naprosyn] 500 mg PO BID #20 tablet 11/02/17 Unknown Rx Allergies Allergy/AdvReac Type Severity Reaction Status Date / Time venom-honey bee Allergy Severe Anaphylaxis Verified 11/11/15 22:01 [bee venom (honey bee)] ED Review of Systems ROS: Stated complaint: DIZZY Other details as noted in HPI Comment: All other systems reviewed and negative Constitutional: denies: chills, fever Eyes: denies: eye pain ENT: denies: ear pain, throat pain Respiratory: denies: cough, shortness of breath Cardiovascular: chest pain. denies: palpitations Endocrine: no symptoms reported Gastrointestinal: denies: abdominal pain, nausea, vomiting, diarrhea Genitourinary: urgency, dysuria Musculoskeletal: back pain, joint swelling Skin: rash, lesions Neurological: headache, weakness. denies: numbness Psychiatric: anxiety, depression Hematological/Lymphatic: easy bleeding, easy bruising ED Past Medical Hx - Past Medical History Hx Hypertension: Yes (x 3 yrs) Hx Congestive Heart Failure: No Hx Diabetes: Yes Hx Deep Vein Thrombosis: No Hx Renal Disease: No Hx Sickle Cell Disease: Yes (Trait only) Hx Arthritis: Yes Hx Seizures: No Hx Psychiatric Treatment: Yes (anxiety) Hx Asthma: No Hx COPD: No Hx HIV: No Additional medical history: SICKLE CELL TRAIT - Surgical History Additional Surgical History: 4 c-sections - Social History Smoking Status: Never Smoker Substance Use Type: None - Medications Home Medications: Home Medications Medication Instructions Recorded Confirmed Last Taken Type Insulin Glargine [Lantus VIAL] 35 unit SUB-Q QHS 12/20/16 02/07/17 Unknown History Insulin Aspart [NovoLOG Flexpen] 15 units SQ QAM 02/07/17 02/07/17 Unknown History cloNIDine [Catapres] 0.2 mg PO TID 02/07/17 02/07/17 Unknown History Naproxen [Naprosyn] 500 mg PO BID #14 tablet 05/13/17 Unknown Rx Ondansetron [Zofran Odt] 4 mg PO Q8HR PRN #14 tab.rapdis 05/13/17 Unknown Rx traMADol [Ultram 50 MG tab] 50 mg PO Q4HR PRN #14 tablet 05/13/17 Unknown Rx Naproxen [Naprosyn] 500 mg PO BID #20 tablet 11/02/17 Unknown Rx ED Physical Exam - General Limitations: No Limitations General appearance: alert, in no apparent distress - Head Head exam: Present: atraumatic, normocephalic, normal inspection - Eye Eye exam: Present: normal appearance, PERRL, EOMI Pupils: Present: normal accommodation - ENT ENT exam: Present: normal exam, normal orophraynx, mucous membranes moist - Neck Neck exam: Present: normal inspection, full ROM. Absent: tenderness - Respiratory Respiratory exam: Present: normal lung sounds bilaterally. Absent: respiratory distress, wheezes, rales, rhonchi, stridor - Cardiovascular Cardiovascular Exam: Present: regular rate, normal rhythm, normal heart sounds - GI/Abdominal GI/Abdominal exam: Present: soft, normal bowel sounds. Absent: distended, tenderness, guarding, rebound, rigid - Extremities Exam Extremities exam: Present: normal inspection, full ROM. Absent: tenderness, pedal edema - Back Exam Back exam: Present: normal inspection, full ROM. Absent: tenderness - Neurological Exam Neurological exam: Present: alert, oriented X3, CN II-XII intact - Psychiatric Psychiatric exam: Present: normal affect, normal mood - Skin Skin exam: Present: warm, dry, intact, normal color. Absent: rash ED Course Vital Signs 11/26/17 11/26/17 11/26/17 13:56 15:48 16:18 Temperature 98.2 F Pulse Rate 104 H 101 H 101 H Respiratory 18 18 Rate Blood Pressure 195/118 Blood Pressure 191/125 178/116 [Left] O2 Sat by Pulse 95 96 Oximetry - Reevaluation(s) Reevaluation #1: 11/26/17 16:37 Patient refused imaging studies and she signed and left against medical advice. She said she had to go home and take care of her children. I advised her that it's unsafe to go home before her ED evaluation is completed and her blood pressure controlled otherwise she runs a risk of severe medical disability or . She verbalized understanding the risks I explained to her. She is alert and oriented x 4 and she has a medical decision making capacity. ED Medical Decision Making - Lab Data Result diagrams: 11/26/17 15:03 11/26/17 15:03 - EKG Data -: EKG Interpreted by Me EKG shows normal: sinus rhythm Rate: normal (99) - EKG Data When compared to previous EKG there are: previous EKG unavailable Interpretation: nonspecific ST-T wave kalpesh, LV[facility] - Radiology Data Radiology results: report reviewed, image reviewed - Medical Decision Making Dizziness. Hypertension. Critical care attestation.: If time is entered above; I have spent that time in minutes in the direct care of this critically ill patient, excluding procedure time. ED Disposition Clinical Impression: Dizziness Hypertension Qualifiers: Hypertension type: unspecified Qualified Code(s): I10 - Essential (primary) hypertension Disposition: -07 LEFT AGAINST MED ADVICE Is pt being admited?: No Does the pt Need Aspirin: No Condition: Stable Instructions: Hypertension (ED) Referrals: PRIMARY CARE, [Primary Care Provider] - 3-5 Days Time of Disposition: 16:25
[2017-11-26] MEDS ORDERED: CATAPRES PO ONE (14:34)
[2017-11-26] MEDS ORDERED: NORMODYNE IV ONE ×2 (15:43→16:24)
[2017-11-26 15:45] LABS: Alanine Aminotransferase 7 units/L (7-56); Albumin 3.9 g/dL (3.9-5); BUN/Creatinine Ratio 10; Blood Urea Nitrogen 10 mg/dL (7-17); Calcium 9.1 mg/dL (8.4-10.2); Hemolysis Index 8
[2017-11-26 15:56] LABS: Basophils # (Auto) 0.1 K/mm3 (0.0-0.1); Basophils % (Auto) 0.8 % (0.0-1.8); Eosinophils % (Auto) 0.3 % (0.0-4.3); Hematocrit 42.5 % (30.3-42.9); Hemoglobin 14.2 gm/dl (10.1-14.3); Lymphocytes # (Auto) 2.1 K/mm3 (1.2-5.4); Lymphocytes % (Auto) 27.3 % (13.4-35.0); Mean Corpuscular HGB Conc 33 % (30-34); Mean Corpuscular Hemoglobin 30 pg (28-32); Mean Corpuscular Volume 89 fl (79-97); Monocytes # (Auto) 0.6 K/mm3 (0.0-0.8); Monocytes % (Auto) 7.8 % (0.0-7.3); Platelet Count 257 K/mm3 (140-440); Red Blood Count 4.77 M/mm3 (3.65-5.03); Red Cell Distribution Width 14.6 % (13.2-15.2)
[2017-11-26 16:08] LABS: INR 0.94 (0.87-1.13)
[2017-11-26 16:09] LABS: Partial Thromboplastin Time 33.2 Sec. (24.2-36.6)
[2017-11-26 16:17] LABS: Bilirubin,Urine NEG (Negative); Blood,Urine NEG (Negative); Color,Urine Straw (Yellow); HCG Qualitative,Urine Negative (Negative); Mucus,Urine FEW /HPF; Protein,Urine <15 mg/dL mg/dL (Negative); RBC,Urine < 1.0 /HPF (0.0-6.0); Urobilinogen,Urine < 2.0 mg/dL (<2.0); WBC,Urine < 1.0 /HPF (0.0-6.0)
[2017-11-26 16:18] VITALS: BP 178/116
== END 2017-11-26 16:22 | disposition left against medical advice (07) ==
LOC: ED 13:22
DX: R42 Dizziness and giddiness (principal); I10 Essential (primary) hypertension; R07.89 Other chest pain; E11.9 Type 2 diabetes mellitus without complications; M19.90 Unspecified osteoarthritis, unspecified site; F41.9 Anxiety disorder, unspecified; Z79.4 Long term (current) use of insulin; Z91.030 Bee allergy status
CPT/HCPCS: 36415; 80053; 81001; 81025; 83880; 84484; 85025; 85610; 85730; 93005; 93010; 96374

== ENCOUNTER 2017-12-30 07:57 | Day surgery (SDC) | payer MEDICARE ==
[~2017-12-30 07:57] MED LIST changes: -MYDRIACYL ONE; +NACL 0.9% 1000 ML 1,000 ML IV SCH; -NEOFRIN ONE
[2017-12-30] MEDS ORDERED: NORMODYNE IV ONE (08:30)
--- NOTE | 2017-12-30 10:03 | Anesthesia Consultation ---
Anesthesia Consult and Med Hx Date of service: 12/30/17 - Airway Anesthetic Teeth Evaluation: Good ROM Head & Neck: Adequate Mental/Hyoid Distance: Adequate Mallampati Class: Class I Intubation Access Assessment: Good - Pulmonary Exam CTA: Yes - Cardiac Exam Cardiac Exam: RRR - Pre-Operative Health Status ASA Pre-Surgery Classification: ASA2 Proposed Anesthetic Plan: MAC - Pulmonary Hx Asthma: No COPD: No Hx Pneumonia: No - Cardiovascular System Hx Hypertension: Yes (x 3 yrs) - Central Nervous System Hx Seizures: No Hx Back Pain: Yes (arthritis) Hx Psychiatric Problems: No - Endocrine Hx Renal Disease: No Hx End Stage Renal Disease: No Hx Non-Insulin Dependent Diabetes: Yes Hx Hypothyroidism: No Hx Hyperthyroidism: No - Hematic Hx Anemia: No Hx Sickle Cell Disease: Yes (Trait only) - Other Systems Hx Alcohol Use: Yes (occas) Hx Cancer: No
--- NOTE | 2017-12-30 10:04 | Anesthesia Day of Surgery ---
Anesthesia Day of Surgery - Day of Surgery Patient Examined: Yes Patient H&P Reviewed: Yes Patient is NPO: Yes Beta Blockers: Yes Cardiac Clearance: No Pulmonary Clearance: No
--- NOTE | 2017-12-30 11:00 | Operative Report ---
PREOPERATIVE DIAGNOSIS: Morbid obesity. POSTOPERATIVE DIAGNOSES: Mild duodenitis, morbid obesity. PROCEDURE: EGD. ANESTHESIA: MAC. COMPLICATIONS: None. SPECIMENS: None. BLEEDING: None. INDICATIONS: The patient is a 42-year-old female with a history of morbid obesity. She is here for preoperative EGD in preparation for her weight loss surgery. Informed consent was obtained. DESCRIPTION OF PROCEDURE: The patient was brought to the operating suite where she was placed in the left lateral decubitus position, underwent MAC anesthesia. A bite block was placed and a timeout was called. A standard adult gastroscope was inserted into the oropharynx, down the esophagus, into the stomach. On retroflexion view, she was noted to have a very small hiatal hernia. There was noted a mild duodenitis in the first portion of the D1. There were no other abnormalities. The air was then insufflated, the gastroscope was removed. The patient tolerated the procedure well and was transferred to the PACU in stable condition. JOB# [id number] SETH/KIRILL
[2017-12-30 11:30] VITALS: BP 166/93
== END 2017-12-30 07:58 | disposition home or self-care (01) ==
LOC: GIO 07:57
PROVIDERS: ATTEND Specialist
DX: K29.80 Duodenitis without bleeding (principal); E66.01 Morbid (severe) obesity due to excess calories; E11.9 Type 2 diabetes mellitus without complications; M19.90 Unspecified osteoarthritis, unspecified site; D57.3 Sickle-cell trait; I10 Essential (primary) hypertension; Z68.37 Body mass index [BMI] 37.0-37.9, adult; Z79.899 Other long term (current) drug therapy; Z79.4 Long term (current) use of insulin; Z88.5 Allergy status to narcotic agent; Z91.030 Bee allergy status; Z98.42 Cataract extraction status, left eye; Z72.89 Other problems related to lifestyle; Z98.891 History of uterine scar from previous surgery; Z98.890 Other specified postprocedural states; Z80.9 Family history of malignant neoplasm, unspecified
CPT/HCPCS: 43235; 82962; 96374; 96375; J7030

== ENCOUNTER 2018-01-01 09:20 | Emergency (ER) | payer MEDICARE ==
[2018-01-01 10:04] LABS: Basophils % (Auto) 0.4 % (0.0-1.8); Eosinophils # (Auto) 0.1 K/mm3 (0.0-0.4); Eosinophils % (Auto) 1.4 % (0.0-4.3); Hematocrit 40.7 % (30.3-42.9); Hemoglobin 13.5 gm/dl (10.1-14.3); Lymphocytes # (Auto) 2.2 K/mm3 (1.2-5.4); Lymphocytes % (Auto) 35.8 % (13.4-35.0); Mean Corpuscular HGB Conc 33 % (30-34); Mean Corpuscular Hemoglobin 29 pg (28-32); Mean Corpuscular Volume 88 fl (79-97); Monocytes # (Auto) 0.4 K/mm3 (0.0-0.8); Monocytes % (Auto) 7.1 % (0.0-7.3); Platelet Count 288 K/mm3 (140-440); Red Blood Count 4.62 M/mm3 (3.65-5.03); Red Cell Distribution Width 14.7 % (13.2-15.2)
[2018-01-01 10:20] LABS: BUN/Creatinine Ratio 10; Blood Urea Nitrogen 9 mg/dL (7-17); Calcium 9.5 mg/dL (8.4-10.2); Hemolysis Index 3
[2018-01-01] MEDS ORDERED: NORMODYNE IV ONE (10:22)
--- NOTE | 2018-01-01 10:34 | Emergency Department Report ---
HPI - General Chief Complaint: High BP Time Seen by Provider: 01/01/18 10:14 - HPI HPI: 42-year-old female presents to the emergency department with a complaint of a headache and uncontrolled blood pressure. The headache is generalized and throbbing. She denies any slurred speech, motor or sensory deficits or any other neurological complaints. She has a past medical history of this hypertension, diabetes, anxiety, sickle cell trait. Her primary care physician is Dr. Jauregui. The patient says that she was switched from 0.2 mg clonidine to hydralazine 50 mg 3 times daily about 1 week ago. She says that she has been taking the hydralazine compliantly but her blood pressure continues to be elevated. She woke up last night with a return and worsening of her headache so she took an extra hydralazine. At first the patient says she is unsure as to why she was switched medications but she does admit that the clonidine "makes me go to sleep and then I wake up relaxed and with my blood pressure down." The patient says that she is due to have a gastric sleeve surgery done this coming Friday with Dr. Kaminski. She denies any chest pain, fever, back pain, shortness breath, nausea or vomiting. ED Past Medical Hx - Past Medical History Hx Hypertension: Yes (x 3 yrs) Hx Congestive Heart Failure: No Hx Diabetes: Yes Hx Deep Vein Thrombosis: No Hx Renal Disease: No Hx Sickle Cell Disease: Yes (Trait only) Hx Arthritis: Yes Hx Seizures: No Hx Psychiatric Treatment: Yes (anxiety) Hx Asthma: No Hx COPD: No Hx HIV: No Additional medical history: SICKLE CELL TRAIT - Surgical History Additional Surgical History: 4 c-sections - Social History Smoking Status: Never Smoker Substance Use Type: Alcohol - Medications Home Medications: Home Medications Medication Instructions Recorded Confirmed Last Taken Type Detemir (Nf) [Levemir (Nf)] 35 units SQ QHS 12/29/17 01/01/18 12/29/17 History Insulin Aspart [NovoLOG 100 15 units SQ AC 12/29/17 01/01/18 12/29/17 History UNITS/ML VIAL] Hydralazine HCl 50 mg PO TID 01/01/18 01/01/18 Unknown History Losartan Potassium 100 mg PO DAILY 01/01/18 01/01/18 Unknown History amLODIPine [Norvasc] 10 mg PO DAILY #30 tab 01/01/18 01/01/18 Unknown Rx ED Review of Systems ROS: Stated complaint: HIGH BP Other details as noted in HPI Comment: All other systems reviewed and negative Constitutional: denies: chills, fever Eyes: denies: eye pain, eye discharge, vision change ENT: denies: ear pain, throat pain Respiratory: denies: cough, shortness of breath, wheezing Cardiovascular: denies: chest pain, palpitations Gastrointestinal: denies: abdominal pain, nausea, diarrhea Genitourinary: denies: urgency, dysuria, discharge Musculoskeletal: denies: back pain, joint swelling, arthralgia Skin: denies: rash, lesions Neurological: headache. denies: numbness Physical Exam - Physical Exam Vital Signs: Vital Signs 01/01/18 09:36 Temperature 97.7 F Pulse Rate 109 H Respiratory 18 Rate Blood Pressure 196/127 O2 Sat by Pulse 98 Oximetry Physical Exam: GENERAL: The patient is well-developed well-nourished. HENT: Normocephalic. Atraumatic. Patient has moist mucous membranes. EYES: Extraocular motions are intact. Pupils equal reactive to light bilaterally. No nystagmus. NECK: Supple. Trachea is midline. CHEST/LUNGS: Clear to auscultation. There is no respiratory distress noted. HEART/CARDIOVASCULAR: Regular. There is no tachycardia. There is no murmur. ABDOMEN: Abdomen is soft, nontender. Patient has normal bowel sounds. There is no abdominal distention. SKIN: Skin is warm and dry. NEURO: The patient is awake, alert, and oriented. The patient is cooperative. The patient has no focal neurologic deficits. The patient has normal speech. Cranial nerves II through XII grossly intact. No pronator drift. No dysmetria. MUSCULOSKELETAL: There is no tenderness or deformity. There is no limitation range of motion. There is no evidence of acute injury. ED Course Vital Signs 01/01/18 09:36 Temperature 97.7 F Pulse Rate 109 H Respiratory 18 Rate Blood Pressure 196/127 O2 Sat by Pulse 98 Oximetry ED Medical Decision Making - Lab Data Result diagrams: 01/01/18 09:50 01/01/18 09:50 - EKG Data -: EKG Interpreted by Me EKG shows normal: sinus rhythm, axis, intervals, QRS complexes, ST-T waves Rate: tachycardia (103 bpm) - EKG Data When compared to previous EKG there are: previous EKG unavailable Interpretation: other (sinus tach, no STEMI) - Radiology Data Radiology results: report reviewed CT of the head does not show any acute intracranial process including no ischemia, shift, mass, bleeding or skull fracture. - Medical Decision Making Patient presents with uncontrolled blood pressure and a headache. She does not have a focal, motor or sensory deficits and her cranial nerves are intact. The patient was previously switched from her Catapres to hydralazine because the Catapres makes her tired and the hydralazine does not appear to be working for her. Labs have been unremarkable. CT of the head did not show any bleed, shift , mass or any other acute process. Patient was given a dose of labetalol and hydralazine and her blood pressure came down to a more reasonable level. Patient says she is feeling better and her headache has greatly improved. For these reasons the patient appears safe for discharge home at this time. She will be started on amlodipine and will use the hydralazine as necessary until she is able to follow up with her primary care physician in the next few days. She will return to the ER with any worsening of symptoms or any acute distress. - Differential Diagnosis tension headache, migraine, brain bleed Critical Care Time: No Critical care attestation.: If time is entered above; I have spent that time in minutes in the direct care of this critically ill patient, excluding procedure time. ED Disposition Clinical Impression: Uncontrolled hypertension Headache Qualifiers: Headache type: unspecified Headache chronicity pattern: unspecified pattern Intractability: not intractable Qualified Code(s): R51 - Headache Disposition: DC-01 TO HOME OR SELFCARE Is pt being admited?: No Condition: Stable Instructions: Acute Headache (ED), Hypertension (ED) Additional Instructions: Please follow-up with your primary care physician in the next few days without fail. I am starting you on a new blood pressure medication called Norvasc/ amlodipine. This medication is usually taken in the morning and is once per day. Try and stay away from foods that are high in salt and caffeinated products. Keep a blood pressure log. If the blood pressure is still elevated, you can still take your hydralazine. Return to the emergency department immediately with any worsening of your symptoms, development of chest pain or shortness of breath, or with any acute distress. Prescriptions: amLODIPine [Norvasc] 10 mg PO DAILY #30 tab Referrals: LEIGHANN JAUREGUI MD [Staff Physician] - [facility] Time of Disposition: 13:11
[2018-01-01 11:27] LABS: HCG Qualitative,Urine Negative (Negative)
[2018-01-01] MEDS ORDERED: APRESOLINE IV ONE (11:32)
--- NOTE | 2018-01-01 12:32 | Cat Scan Report ---
CT HEAD WITHOUT CONTRAST: 01/01/18 CLINICAL: Headache with hypertension. TECHNIQUE: 2.5-mm noncontrast scans. COMPARISON:None FINDINGS: The ventricles and sulci are normal for age. No abnormal density. No mass or mass effect. No hemorrhage, edema or extra-axial collection. The frontal and sphenoid sinuses are clear. Maxillary sinuses are not included on the exam. Normal orbits and soft tissues. The calvarium and skull base are intact. IMPRESSION: Normal study.
[2018-01-01] MEDS ORDERED: ZOFRAN IV ONE (12:45)
[2018-01-01 13:03] VITALS: BP 161/98
[2018-01-01] MEDS ORDERED: TORADOL IV ONE (13:18)
[2018-01-01] MEDS ORDERED: TORADOL ONE (13:18)
== END 2018-01-01 13:40 | disposition home or self-care (01) ==
LOC: ED 09:20
DX: I10 Essential (primary) hypertension (principal); E11.9 Type 2 diabetes mellitus without complications; M19.90 Unspecified osteoarthritis, unspecified site; Z79.4 Long term (current) use of insulin; Z88.6 Allergy status to analgesic agent; Z91.030 Bee allergy status
CPT/HCPCS: 36415; 70450; 80048; 81025; 85025; 93005; 93010; 96374; 96375; 99284; J0360; J1885; J2405

== ENCOUNTER 2018-01-06 08:00 | Inpatient (IN) | payer MEDICARE ==
--- NOTE | 2018-01-05 10:44 | Anesthesia Consultation ---
Anesthesia Consult and Med Hx Date of service: 01/05/18 - Airway Anesthetic Teeth Evaluation: Chipped, Caps, Crowns ROM Head & Neck: Adequate Mental/Hyoid Distance: Adequate Mallampati Class: Class I - Pulmonary Exam CTA: Yes - Cardiac Exam Cardiac Exam: RRR - Pre-Operative Health Status ASA Pre-Surgery Classification: ASA2 - Pre-Anesthesia Comment Pre-Anesthesia Comments: Patient tolerates 6 METs. No chest pain or SOB. No cold or flu - Pulmonary Hx Asthma: No COPD: No Hx Pneumonia: No - Cardiovascular System Hx Hypertension: Yes (x 3 yrs) - Central Nervous System Hx Seizures: No Hx Back Pain: Yes (arthritis) Hx Psychiatric Problems: No - Endocrine Hx Renal Disease: No Hx End Stage Renal Disease: No Hx Non-Insulin Dependent Diabetes: Yes (gestational diabetes) Hx Hypothyroidism: No Hx Hyperthyroidism: No - Hematic Hx Anemia: No Hx Sickle Cell Disease: Yes (Trait only) - Other Systems Hx Alcohol Use: Yes (occas) Hx Cancer: No Hx Obesity: Yes
[~2018-01-06 08:00] MED LIST changes: +ANCEF/STERILE WATER 2 GM/20 ML 2 GM/20 ML SYRINGE IV NR; +APRESOLINE IV PRN; +FLAGYL 500 MG/100 ML 500 MG/100 ML BAG IV NR; +LACTATED RINGERS 1,000 ML IV SCH; +LOVENOX SUB-Q NR; +MYLICON PO PRN; -NACL 0.9% 1000 ML 1,000 ML IV SCH; +REGLAN IV PRN; +TRANSDERM-SCOP TD SCH; +ZOFRAN IV PRN
[2018-01-06] MEDS ORDERED: VERSED IV NR (14:00)
--- NOTE | 2018-01-06 15:04 | Anesthesia Day of Surgery ---
Anesthesia Day of Surgery - Day of Surgery Patient Examined: Yes Patient H&P Reviewed: Yes Patient is NPO: Yes
[2018-01-06] MEDS ORDERED: D50W (25GM) Syringe IV PRN (16:35)
[2018-01-06] MEDS ORDERED: SUBLIMAZE ONE ×2 (16:41→17:45)
[2018-01-06] MEDS ORDERED: ROBINUL ONE (16:41)
[2018-01-06] MEDS ORDERED: DECADRON ONE (16:41)
[2018-01-06] MEDS ORDERED: ZOFRAN ONE (16:41)
[2018-01-06] MEDS ORDERED: DIPRIVAN 10 MG/ML IV ONE (16:42)
[2018-01-06] MEDS ORDERED: XYLOCAINE 1% 20 mL ONE (16:45)
[2018-01-06] MEDS ORDERED: MARCAINE-EPI 0.5%-1:200,000 INFILTRATI ONE ×2 (16:45→16:55)
[2018-01-06] MEDS ORDERED: ZEMURON IV ONE (16:46)
[2018-01-06] MEDS ORDERED: QUELICIN ONE (16:46)
[2018-01-06] MEDS ORDERED: NACL 0.9% IR ONE (16:55)
[2018-01-06] MEDS ORDERED: XYLOCAINE 1% 20 mL INFILTRATI ONE (16:55)
[2018-01-06] MEDS ORDERED: TORADOL ONE (18:02)
--- NOTE | 2018-01-06 18:05 | Operative Report ---
Operative Report Operative Report: DATE OF PROCEDURE 01/06/18 PREOPERATIVE DIAGNOSES: Morbid obesity POSTOPERATIVE DIAGNOSES: same SURGEON: Luis Westbrook MD, Manuel Kaminski MD OCCUPATIONAL MEDICINE OFFICER: Grey Rivera MD PROCEDURE: 1. Laparoscopic sleeve gastrectomy 2. Laparoscopic hiatal hernia repair ANESTHESIA: General. ESTIMATED BLOOD LOSS: less than 5 mL. COMPLICATIONS: None. SPECIMEN: Partial gastrectomy. FINDINGS: 1. small hiatal hernia INDICATION FOR PROCEDURE: Patient is 42 year-old female with a long-standing history of morbid obesity refractory to diet and exercise. She has gone through the bariatric surgery program and wishes for an operation. The risks, complications, and alternatives were explained to the patient, informed consent was obtained. PROCEDURE IN DETAIL: The patient was taken to the operating room where she was placed in the supine position. She was given preoperative antibiotics and DVT prophylaxis, and then prepped and draped in the usual sterile fashion. After a time-out was called, a stab incision was made in the at the base of the umbilicus and a veress needle was inserted with insufflation to 18 mmHg. The incision was widened and a 15mm trocar was inserted. There was no injury at the site of the veress needle. Additional 5-mm ports were placed in the right quadrant, subxiphoid, and left quadrant after injection of local analgesia. A liver retractor was inserted through the subxiphoid port and the patient was positioned in steep reverse Trendelenburg. The right and left crura were skeletonized, accentuating a small hiatal hernia. The GE juction was noted below the level of the diaphragm. An anterior cruraplasty was performed with U- stitch 0 ethibond suture to reapproximate the crura. The angle of His was dissected free. The pylorus was visualized and the stomach measured 6cm from the pylorus. A LigaSure was used to enter the lesser sac, dividing the omentum and the short gastrics all the way up to the left ivan. Anesthesia passed down a 40 F bougie along the lesser curvature of the stomach. A gastric sleeve was created using a several stapler loads. The bougie was removed. Hemostasis was obtained along the staple line after decrease of insufflation pressures. The gastric remnant was removed via the 15-mm umbilical port. The abdomen was desulflated and all ports were removed. The fascia was closed with a #1 PDS in a [id number] fashion. The incisions were closed with 4-0 Monocryl in subcuticular fashion, dressed with steristrips, gauze and tape. Patient tolerated the procedure well and was transferred to recovery room in stable condition. Counts were correct.
[2018-01-06] MEDS ORDERED: HumuLIN R IV ONE (18:32)
[2018-01-06] MEDS ORDERED: HumuLIN R SUB-Q ONE (18:32)
[2018-01-06] MEDS ORDERED: ZOFRAN IV ONE (18:38)
[2018-01-06] MEDS ORDERED: HumuLIN R ONE (18:39)
[2018-01-06] MEDS ORDERED: BENADRYL IV PRN (19:10)
[2018-01-06] MEDS ORDERED: LANTUS SUB-Q SCH (21:00)
[2018-01-06] MEDS: HumaLOG SUB-Q SCH (21:58)
[2018-01-06] MEDS: DILAUDID IV PRN (22:11)
--- NOTE | 2018-01-06 22:14 | Post Anesthesia Evaluation ---
- Post Anesthesia Evaluation Patient Participated: Yes Airway Patent: Yes Stable Respiratory Function: Yes Nausea/Vomiting: No Temp > 96.8F: Yes Pain Manageable: Yes Adequeate Hydration: Yes Anesthesia Complications: No
[2018-01-06] MEDS: CATAPRES PO SCH (22:44)
[2018-01-07] MEDS: HumaLOG SUB-Q SCH ×3 (01:40→12:33)
[2018-01-07] MEDS: LYRICA PO SCH ×2 (01:40→08:46)
[2018-01-07] MEDS: DILAUDID IV PRN (01:41)
[2018-01-07] MEDS: CATAPRES PO SCH (05:07)
[2018-01-07 05:11] LABS: Basophils # (Auto) 0.1 K/mm3 (0.0-0.1); Basophils % (Auto) 0.6 % (0.0-1.8); Hematocrit 38.3 % (30.3-42.9); Hemoglobin 12.9 gm/dl (10.1-14.3); Lymphocytes # (Auto) 0.9 K/mm3 (1.2-5.4); Lymphocytes % (Auto) 8.5 % (13.4-35.0); Mean Corpuscular HGB Conc 34 % (30-34); Mean Corpuscular Hemoglobin 30 pg (28-32); Mean Corpuscular Volume 88 fl (79-97); Monocytes # (Auto) 0.1 K/mm3 (0.0-0.8); Monocytes % (Auto) 1.3 % (0.0-7.3); Platelet Count 259 K/mm3 (140-440); Red Blood Count 4.37 M/mm3 (3.65-5.03); Red Cell Distribution Width 14.6 % (13.2-15.2)
[2018-01-07 05:30] LABS: BUN/Creatinine Ratio 13; Blood Urea Nitrogen 12 mg/dL (7-17); Calcium 9.3 mg/dL (8.4-10.2); Hemolysis Index 51
--- NOTE | 2018-01-07 06:59 | Progress Note ---
Assessment and Plan 42F MO s/p LS 01/06/18 #1 sp LS - postop pain control - nausea control - IVFs - encourage ambulation - IS use - bariatric CLD - discussed diet and postop care in detail - Rx given at preop visit Subjective Date of service: 01/07/18 Principal diagnosis: MO Interval history: No issues overnight. Ambulated several times. Tolerating CLD. Pain under control. Objective - Exam Narrative Exam: GEN: AAO, NAD HEENT: Anicteric HEART: RRR LUNGS: CTAB, no wheezes/rales ABD: MO, soft, NT, ND, bandages c/d/i EXT: no LE edema - Constitutional Vitals: Vital Signs - 12hr 01/06/18 01/06/18 01/06/18 19:00 19:15 19:30 Temperature Pulse Rate 74 82 81 Respiratory 15 15 18 Rate Blood Pressure 144/89 135/76 149/90 O2 Sat by Pulse 99 98 99 Oximetry 01/06/18 01/06/18 01/06/18 19:45 19:55 20:20 Temperature 97.6 F 97.6 F Pulse Rate 82 80 82 Respiratory 19 18 16 Rate Blood Pressure 143/87 138/74 145/95 O2 Sat by Pulse 99 98 96 Oximetry 01/07/18 00:11 Temperature 97.7 F Pulse Rate 87 Respiratory 20 Rate Blood Pressure 134/83 O2 Sat by Pulse 92 Oximetry - Labs CBC & Chem 7: 01/07/18 04:44 01/07/18 04:44 Labs: Abnormal lab results 01/06/18 01/06/18 01/06/18 Range/Units 14:09 18:32 19:27 WBC (4.5-11.0) K/mm3 Lymph % (Auto) (13.4-35.0) % Lymph # (1.2-5.4) K/mm3 Seg Neutrophils % (40.0-70.0) % Seg Neutrophils # (1.8-7.7) K/mm3 Potassium (3.6-5.0) mmol/L Glucose (65-100) mg/dL POC Glucose 225 H 228 H 178 H (70-105) 01/06/18 01/07/18 01/07/18 Range/Units 22:06 04:44 04:44 WBC 11.2 H (4.5-11.0) K/mm3 Lymph % (Auto) 8.5 L (13.4-35.0) % Lymph # 0.9 L (1.2-5.4) K/mm3 Seg Neutrophils % 89.6 H (40.0-70.0) % Seg Neutrophils # 10.0 H (1.8-7.7) K/mm3 Potassium 5.2 H (3.6-5.0) mmol/L Glucose 309 H (65-100) mg/dL POC Glucose 223 H (70-105) 01/07/18 Range/Units 06:17 WBC (4.5-11.0) K/mm3 Lymph % (Auto) (13.4-35.0) % Lymph # (1.2-5.4) K/mm3 Seg Neutrophils % (40.0-70.0) % Seg Neutrophils # (1.8-7.7) K/mm3 Potassium (3.6-5.0) mmol/L Glucose (65-100) mg/dL POC Glucose 274 H (70-105)
--- NOTE | 2018-01-07 07:02 | Discharge Summary ---
Providers - Providers Date of Admission: 01/06/18 12:22 Date of discharge: 01/07/18 Attending physician: PERLA KAMINSKI Primary care physician: LEIGHANN JAUREGUI Hospitalization Reason for admission: postop care Condition: Good Procedures: 01/06/18: Lap sleeve gastrectomy Hospital course: 42F admitted after operation for routine postop monitoring. No issues. She tolerated a bariatric CLD, pain well controlled, ambulated. She was dc POD#1 in stable conditon. Disposition: DC-01 TO HOME OR SELFCARE Core Measure Documentation - Palliative Care Palliative Care/ Comfort Measures: Not Applicable - Core Measures Any of the following diagnoses?: none - VTE Discharge Requirements Deep Vein Thrombosis/Pulmonary Embolism Present on Admission: No - Acute [place] Discharge Requirements Aspirin at discharge: No Reason for no aspirin on DC: Surgical contraindication - Heart Failure Discharge Requirements PABLO/ARB for LVSD if EF <40%: Not Applicable - Stroke Discharge Requirements Statin for LDL = or >70 mg/dl on DC: Not Applicable Exam - Physical Exam Narrative exam: GEN: AAO, NAD HEENT: Anicteric HEART: RRR LUNGS: CTAB, no wheezes/rales ABD: MO, soft, NT, ND, bandages c/d/i EXT: no LE edema - Constitutional Vitals: Temp Pulse Resp BP Pulse Ox 97.7 F 87 20 134/83 92 01/07/18 00:11 01/07/18 00:11 01/07/18 00:11 01/07/18 00:11 01/07/18 00:11 Plan Diet: other (bariatric CLD) Wound: keep clean and dry, change dressing Additional Instructions: F/u Dr Kaminski as already scheduled Follow up with: LEIGHANN JAUREGUI MD [Primary Care Provider] - 7 Days
[2018-01-07] MEDS ORDERED: NORVASC PO SCH (08:00)
[2018-01-07] MEDS ORDERED: LOVENOX SUB-Q SCH (08:00)
[2018-01-07] MEDS ORDERED: COZAAR PO SCH (08:00)
[2018-01-07 11:37] VITALS: BP 126/89
== END 2018-01-07 12:34 | disposition home or self-care (01) | DRG 621 ==
LOC: 3A 12:22 → 3B 19:03
PROVIDERS: ADMIT Specialist; ATTEND Specialist
PROC: 0DB64Z3 Excision of Stomach, Percutaneous Endoscopic Approach, Vertical (ICD-10-PCS; principal; 2018-01-06)
PROC: 0BQT4ZZ Repair Diaphragm, Percutaneous Endoscopic Approach (ICD-10-PCS; 2018-01-06)
DX: E66.01 Morbid (severe) obesity due to excess calories (principal); E11.9 Type 2 diabetes mellitus without complications; M19.90 Unspecified osteoarthritis, unspecified site; I10 Essential (primary) hypertension; D57.3 Sickle-cell trait; K44.9 Diaphragmatic hernia without obstruction or gangrene; Z68.36 Body mass index [BMI] 36.0-36.9, adult; Z71.3 Dietary counseling and surveillance
CPT/HCPCS: 36415; 80048; 81025; 82962; 85025; 88307; J0330; J0690; J1100; J1170; J1200; J1650; J1815; J1885; J2250; J2405; J2704; J2765; J3010; J7120

== ENCOUNTER 2018-10-11 02:03 | Emergency (ER) | payer MEDICARE ==
[2018-10-11 03:31] LABS: Bilirubin,Urine NEG (Negative); Blood,Urine LG (Negative); Color,Urine Red (Yellow)
[2018-10-11 03:32] LABS: HCG Qualitative,Urine Negative (Negative)
[2018-10-11 03:33] LABS: RBC,Urine > 182.0 /HPF (0.0-6.0)
[2018-10-11] MEDS ORDERED: ULTRAM PO ONE (03:46)
[2018-10-11 04:00] LABS: Basophils # (Auto) 0.1 K/mm3 (0.0-0.1); Basophils % (Auto) 1.3 % (0.0-1.8); Eosinophils # (Auto) 0.2 K/mm3 (0.0-0.4); Eosinophils % (Auto) 3.5 % (0.0-4.3); Hematocrit 30.7 % (30.3-42.9); Hemoglobin 10.3 gm/dl (10.1-14.3); Lymphocytes # (Auto) 2.7 K/mm3 (1.2-5.4); Lymphocytes % (Auto) 42.2 % (13.4-35.0); Mean Corpuscular HGB Conc 34 % (30-34); Mean Corpuscular Volume 82 fl (79-97); Monocytes # (Auto) 0.5 K/mm3 (0.0-0.8); Monocytes % (Auto) 7.8 % (0.0-7.3); Platelet Count 247 K/mm3 (140-440); Red Blood Count 3.76 M/mm3 (3.65-5.03); Red Cell Distribution Width 16.8 % (13.2-15.2)
--- NOTE | 2018-10-11 04:32 | Emergency Department Report ---
ED Female HPI - General Chief complaint: Vaginal Bleeding Stated complaint: DIZZINESS/VAG BLEEDING/CLOTS Time Seen by Provider: 10/11/18 03:43 Source: patient Mode of arrival: Ambulatory Limitations: No Limitations - History of Present Illness Initial comments: Patient is a 43-year-old female who presents for vaginal bleeding for the past 2 months history of same for the past 3 years patient denies nausea vomiting no fever chills no back pain symptoms to include lower abdominal cramping patient using 2-3 pads per day there is no shortness of breath is intermittent dizziness and runny nose. Patient has a pain doctor Ankit Galvez follow-up appointment scheduled for 10/22/2018 patient requested pain medication for abdominal spasms patient denies concern for STD . He states she is and has no concerns MD Complaint: vaginal bleeding Onset/Timin -: month(s) Location: suprapubic Radiation: suprapubic Severity: moderate Severity scale (0 -10): 4 Quality: cramping Consistency: constant Improves with: none Worsens with: movement Are you Now?: No Last Menstrual Period: 08/25/18 EDC: 06/01/19 Associated Symptoms: vaginal bleeding, abdominal pain. denies: vaginal discharge, nausea/vomiting, fever/chills, headaches, loss of appetite, dysuria, hematuria, rash, seizure, shortness of breath - Related Data Sexually active: Yes (same partner multple years ) Home Medications Medication Instructions Recorded Confirmed Last Taken Detemir (Nf) [Levemir (Nf)] 35 units SQ QHS 12/29/17 01/06/18 01/05/18 23:00 35 UNITS Insulin Aspart [NovoLOG 100 15 units SQ AC 12/29/17 01/06/18 01/05/18 19:00 UNITS/ML VIAL] 15 UNITS Epipen 1 dose SQ QDAY PRN 01/06/18 01/06/18 03/31/15 cloNIDine [Catapres] 0.2 mg PO QDAY 01/06/18 01/06/18 01/06/18 07:00 Previous Rx's Medication Instructions Recorded Last Taken Type amLODIPine [Norvasc] 10 mg PO DAILY #30 tab 01/01/18 01/06/18 07:00 Rx Ibuprofen [Motrin 800 MG tab] 800 mg PO Q8HR PRN #30 tablet 10/11/18 Unknown Rx Nitrofurantoin [place]/M-Cryst 100 mg PO Q12HR 7 Days #14 capsule 10/11/18 Unknown Rx [Macrobid CAP] medroxyPROGESTERone ACETATE 10 mg PO QDAY #10 tablet 10/11/18 Unknown Rx [Provera] Allergies Allergy/AdvReac Type Severity Reaction Status Date / Time venom-honey bee Allergy Severe Anaphylaxis Verified 01/01/18 09:35 [bee venom (honey bee)] hydrocodone Allergy Nausea Verified 01/01/18 09:35 ED Review of Systems ROS: Stated complaint: DIZZINESS/VAG BLEEDING/CLOTS Other details as noted in HPI Constitutional: denies: chills, fever Eyes: denies: eye pain, eye discharge, vision change ENT: denies: ear pain, throat pain Respiratory: denies: cough, shortness of breath, wheezing Cardiovascular: denies: chest pain, palpitations Endocrine: no symptoms reported Gastrointestinal: abdominal pain. denies: nausea, vomiting, diarrhea, constipation Genitourinary: denies: urgency, dysuria, frequency, hematuria, discharge Musculoskeletal: denies: back pain, joint swelling, arthralgia Skin: denies: rash, lesions Neurological: denies: headache, weakness, paresthesias Psychiatric: denies: anxiety, depression Hematological/Lymphatic: denies: easy bleeding, easy bruising ED Past Medical Hx - Past Medical History Previous Medical History?: Yes Hx Hypertension: Yes (x 3 yrs) Hx Congestive Heart Failure: No Hx Diabetes: Yes Hx Deep Vein Thrombosis: No Hx Renal Disease: No Hx Sickle Cell Disease: Yes (Trait only) Hx Arthritis: Yes Hx Seizures: No Hx Psychiatric Treatment: Yes (anxiety) Hx Asthma: No Hx COPD: No Hx HIV: No Additional medical history: SICKLE CELL TRAIT - Surgical History Past Surgical History?: Yes Additional Surgical History: 4 c-sections - Social History Smoking Status: Never Smoker Substance Use Type: None - Medications Home Medications: Home Medications Medication Instructions Recorded Confirmed Last Taken Type Detemir (Nf) [Levemir (Nf)] 35 units SQ QHS 12/29/17 01/06/18 01/05/18 23:00 History 35 UNITS Insulin Aspart [NovoLOG 100 15 units SQ AC 12/29/17 01/06/18 01/05/18 19:00 History UNITS/ML VIAL] 15 UNITS amLODIPine [Norvasc] 10 mg PO DAILY #30 tab 01/01/18 01/06/18 01/06/18 07:00 Rx Epipen 1 dose SQ QDAY PRN 01/06/18 01/06/18 03/31/15 History cloNIDine [Catapres] 0.2 mg PO QDAY 01/06/18 01/06/18 01/06/18 07:00 History Ibuprofen [Motrin 800 MG tab] 800 mg PO Q8HR PRN #30 tablet 10/11/18 Unknown Rx Nitrofurantoin [place]/M-Cryst 100 mg PO Q12HR 7 Days #14 capsule 10/11/18 Unknown Rx [Macrobid CAP] medroxyPROGESTERone ACETATE 10 mg PO QDAY #10 tablet 10/11/18 Unknown Rx [Provera] ED Physical Exam - General Limitations: No Limitations General appearance: alert, in no apparent distress - Head Head exam: Present: atraumatic, normocephalic - Eye Eye exam: Present: normal appearance, PERRL, EOMI Pupils: Present: normal accommodation - ENT ENT exam: Present: mucous membranes moist. Absent: normal orophraynx, TM's normal bilaterally, normal external ear exam - Neck Neck exam: Present: normal inspection, full ROM. Absent: tenderness, meningismus, lymphadenopathy, thyromegaly - Respiratory Respiratory exam: Present: normal lung sounds bilaterally. Absent: respiratory distress, wheezes, stridor, chest wall tenderness - Cardiovascular Cardiovascular Exam: Present: regular rate, normal rhythm, normal heart sounds. Absent: systolic murmur, diastolic murmur, rubs, gallop - GI/Abdominal GI/Abdominal exam: Present: soft, normal bowel sounds. Absent: distended, tenderness, guarding, rebound, rigid, bruit, pulsatile mass - Rectal Rectal exam: Present: deferred - External exam: Present: other (exam deferred per patient ) - Extremities Exam Extremities exam: Present: normal inspection, full ROM, normal capillary refill. Absent: tenderness, pedal edema, joint swelling, calf tenderness - Back Exam Back exam: Present: normal inspection, full ROM. Absent: tenderness, CVA tenderness (R), CVA tenderness (L), muscle spasm, paraspinal tenderness, rash noted - Neurological Exam Neurological exam: Present: alert, oriented X3, CN II-XII intact, normal gait, motor sensory deficit, reflexes normal - Psychiatric Psychiatric exam: Present: normal affect, normal mood - Skin Skin exam: Present: warm, dry, intact, normal color. Absent: rash ED Course Vital Signs 10/11/18 10/11/18 02:09 02:10 Temperature 98.5 F 98.5 F Pulse Rate 95 H 97 H Respiratory 18 18 Rate Blood Pressure 190/113 190/113 O2 Sat by Pulse 98 98 Oximetry ED Medical Decision Making - Lab Data Result diagrams: 10/11/18 03:50 Lab Results 10/11/18 10/11/18 Range/Units 02:41 03:50 WBC 6.5 (4.5-11.0) K/mm3 RBC 3.76 (3.65-5.03) M/mm3 Hgb 10.3 (10.1-14.3) gm/dl Hct 30.7 (30.3-42.9) % MCV 82 (79-97) fl MCH 28 (28-32) pg MCHC 34 (30-34) % RDW 16.8 H (13.2-15.2) % Plt Count 247 (140-440) K/mm3 Lymph % (Auto) 42.2 H (13.4-35.0) % [place] % (Auto) 7.8 H (0.0-7.3) % Eos % (Auto) 3.5 (0.0-4.3) % Baso % (Auto) 1.3 (0.0-1.8) % Lymph # 2.7 (1.2-5.4) K/mm3 Scre[place] # 0.5 (0.0-0.8) K/mm3 Eos # 0.2 (0.0-0.4) K/mm3 Baso # 0.1 (0.0-0.1) K/mm3 Seg Neutrophils % 45.2 (40.0-70.0) % Seg Neutrophils # 2.9 (1.8-7.7) K/mm3 Urine Color Red (Yellow) Urine Turbidity Slightly-cloudy (Clear) Urine pH 5.0 (5.0-7.0) Ur Specific [place] 1.014 (1.003-1.030) Urine Protein 100 mg/dl (Negative) mg/dL Urine Glucose (UA) Neg (Negative) mg/dL Urine Ketones Neg (Negative) mg/dL Urine Blood Lg (Negative) Urine Nitrite Neg (Negative) Urine Bilirubin Neg (Negative) Urine Urobilinogen 2.0 (<2.0) mg/dL Ur Leukocyte Esterase Tr (Negative) Urine WBC (Auto) 42.0 H (0.0-6.0) /HPF Urine RBC (Auto) > 182.0 (0.0-6.0) /HPF U Epithel Cells (Auto) 1.0 (0-13.0) /HPF Urine HCG, Qual Negative (Negative) - Radiology Data Radiology results: image reviewed - Medical Decision Making this is AUB with US: Essure left intact as stated plan provera, macrobid, ultram follow up with [facility] in 2-3 days , return to ed if symptoms worsen , pt verbalized agreement and understanding of discharge plan, pt will follow up with with printing machinist as scheduled, pt dc'd to home in stable condition at this time. Critical care attestation.: If time is entered above; I have spent that time in minutes in the direct care of this critically ill patient, excluding procedure time. ED Disposition Clinical Impression: Abnormal uterine bleeding (AUB) UTI (urinary tract infection) Qualifiers: Urinary tract infection type: acute cystitis Hematuria presence: without hematuria Qualified Code(s): N30.00 - Acute cystitis without hematuria Disposition: DC-01 TO HOME OR SELFCARE Is pt being admited?: No Does the pt Need Aspirin: No Condition: Stable Instructions: Dysmenorrhea (ED) Prescriptions: Nitrofurantoin [place]/M-Cryst [Macrobid CAP] 100 mg PO Q12HR 7 Days #14 capsule Ibuprofen [Motrin 800 MG tab] 800 mg PO Q8HR PRN #30 tablet PRN Reason: Pain , Severe (7-10) medroxyPROGESTERone ACETATE [Provera] 10 mg PO QDAY #10 tablet Referrals: LEVAR STINSON MD [Staff Physician] - 3-5 Days Forms: Work/School Release Form(ED) Time of Disposition: 04:57
[2018-10-11 05:45] VITALS: BP 170/95
--- NOTE | 2018-10-12 21:04 | Ultrasound Report ---
Pelvic ultrasound complete INDICATION: Dysfunctional uterine bleeding Ultrasound dated 10/11/2018, 0438 hours is presented for interpretation on 10/12/2018 at 1959 hours COMPARISON: CT scan dated 10/11/2018 which was performed approximately 13 hours subsequent to this exa m. FINDINGS: Uterus measures 9.5 cm in length. The endometrial stripe measures 9 mm. The right ovary and left ovary are not seen. No free fluid is seen. Echogenic structures noted in the right adnexa characteristic of the Essure device. There is a 3.6 cm hypoechoic structure in the left aspect of the uterus likely representing a fibroid . IMPRESSION: There is a 3.6 cm hypoechoic structure in the uterus likely representing a fibroid. Neither ovary is identified. CT scan revealed a large left adnexal cyst is not identified on this ult rasound exam. In retrospect, a portion of this cyst is visible on at least 2 of the ultrasound images . Signer Name: Desmond Borges MD Signed: 10/12/2018 9:00 PM Workstation Name: [id number]
== END 2018-10-11 05:58 | disposition home or self-care (01) ==
LOC: ED 02:03
DX: N93.9 Abnormal uterine and vaginal bleeding, unspecified (principal); N39.0 Urinary tract infection, site not specified; I10 Essential (primary) hypertension; E11.9 Type 2 diabetes mellitus without complications; M19.90 Unspecified osteoarthritis, unspecified site; F41.9 Anxiety disorder, unspecified; Z79.4 Long term (current) use of insulin; Z79.899 Other long term (current) drug therapy; Z88.6 Allergy status to analgesic agent; Z91.030 Bee allergy status
CPT/HCPCS: 36415; 74177; 76856; 76857; 80048; 81001; 81025; 85025; 85610; 85730; 87086; 96374; 96375; 99284; J2270; J2405; J7030; Q9967

== ENCOUNTER 2018-10-11 14:57 | Emergency (ER) | payer MEDICARE ==
[2018-10-11 15:27] VITALS: BP 131/84
[2018-10-11 16:24] LABS: Basophils # (Auto) 0.1 K/mm3 (0.0-0.1); Basophils % (Auto) 1.4 % (0.0-1.8); Eosinophils # (Auto) 0.2 K/mm3 (0.0-0.4); Eosinophils % (Auto) 3.6 % (0.0-4.3); Hematocrit 31.9 % (30.3-42.9); Hemoglobin 10.5 gm/dl (10.1-14.3); Lymphocytes # (Auto) 2.3 K/mm3 (1.2-5.4); Lymphocytes % (Auto) 39.1 % (13.4-35.0); Mean Corpuscular HGB Conc 33 % (30-34); Mean Corpuscular Volume 82 fl (79-97); Monocytes # (Auto) 0.4 K/mm3 (0.0-0.8); Monocytes % (Auto) 7.5 % (0.0-7.3); Platelet Count 261 K/mm3 (140-440); Red Blood Count 3.89 M/mm3 (3.65-5.03); Red Cell Distribution Width 16.4 % (13.2-15.2)
[2018-10-11 16:34] LABS: INR 1.05 (0.87-1.13); Partial Thromboplastin Time 26.4 Sec. (24.2-36.6)
[2018-10-11] MEDS ORDERED: NACL 0.9% 1000 ML 1,000 ML IV ONE (16:43)
[2018-10-11] MEDS ORDERED: MORPHINE IV ONE (16:43)
[2018-10-11] MEDS ORDERED: ZOFRAN IV ONE (16:43)
[2018-10-11 17:16] LABS: BUN/Creatinine Ratio 9; Blood Urea Nitrogen 8 mg/dL (7-17); Calcium 9.2 mg/dL (8.4-10.2); Hemolysis Index 6
--- NOTE | 2018-10-11 18:17 | Emergency Department Report ---
ED Female HPI - General Chief complaint: Abdominal Pain Stated complaint: ABDOMINAL PAIN Time Seen by Provider: 10/11/18 16:40 Source: patient Mode of arrival: Ambulatory Limitations: No Limitations - History of Present Illness Initial comments: This is a 43-year-old female nontoxic, well nourished in appearance, no acute signs of distress presents to the ED with c/o of vaginal bleeding and pelvic pain x2 months. Patient denies any nausea or vomiting. Patient describes pelvic pain as cramping and aching with level of 3/10 diffuse. Patient was seen this morning and was discharged and stated has been taking medications as prescribed but was concerned that vaginal bleeding has not stopped and came to the ED again today. Patient denies chest pain, short of breath, fever, chills, headache, stiff neck, numbness or tingling. Patient denies any diarrhea or constipation. Patient denies any recent travels. Patient stated allergies to hydrocodne but denies any allergies to morphin. MD Complaint: vaginal bleeding, pelvic pain -: month(s) (2) Radiation: non-radiating Severity: mild Severity scale (0 -10): 3 Quality: cramping, aching Consistency: constant Improves with: none Worsens with: none Are you Now?: No Associated Symptoms: vaginal bleeding. denies: vaginal discharge, abdominal pain, nausea/vomiting, fever/chills, headaches, loss of appetite, dysuria, hematuria, rash, seizure, shortness of breath, syncope, weakness - Related Data Home Medications Medication Instructions Recorded Confirmed Last Taken Detemir (Nf) [Levemir (Nf)] 35 units SQ QHS 12/29/17 01/06/18 01/05/18 23:00 35 UNITS Insulin Aspart [NovoLOG 100 15 units SQ AC 12/29/17 01/06/18 01/05/18 19:00 UNITS/ML VIAL] 15 UNITS Epipen 1 dose SQ QDAY PRN 01/06/18 01/06/18 03/31/15 cloNIDine [Catapres] 0.2 mg PO QDAY 01/06/18 01/06/18 01/06/18 07:00 Previous Rx's Medication Instructions Recorded Last Taken Type amLODIPine [Norvasc] 10 mg PO DAILY #30 tab 01/01/18 01/06/18 07:00 Rx Acetaminophen/Codeine [Tylenol 1 tab PO Q6H PRN #12 tab 10/11/18 Unknown Rx /Codeine # 3 tab] Ibuprofen [Motrin 800 MG tab] 800 mg PO Q8HR PRN #30 tablet 10/11/18 Unknown Rx Nitrofurantoin [place]/M-Cryst 100 mg PO Q12HR 7 Days #14 capsule 10/11/18 Unknown Rx [Macrobid CAP] medroxyPROGESTERone ACETATE 10 mg PO QDAY #10 tablet 10/11/18 Unknown Rx [Provera] Allergies Allergy/AdvReac Type Severity Reaction Status Date / Time venom-honey bee Allergy Severe Anaphylaxis Verified 01/01/18 09:35 [bee venom (honey bee)] hydrocodone Allergy Nausea Verified 01/01/18 09:35 ED Review of Systems ROS: Stated complaint: ABDOMINAL PAIN Other details as noted in HPI Constitutional: denies: chills, fever Eyes: denies: eye pain, eye discharge, vision change ENT: denies: ear pain, throat pain Respiratory: denies: cough, shortness of breath, wheezing Cardiovascular: denies: chest pain, palpitations Endocrine: no symptoms reported Gastrointestinal: denies: abdominal pain, nausea, diarrhea Genitourinary: abnormal menses. denies: urgency, dysuria, discharge Musculoskeletal: denies: back pain, joint swelling, arthralgia Skin: denies: rash, lesions Neurological: denies: headache, weakness, paresthesias Psychiatric: denies: anxiety, depression Hematological/Lymphatic: denies: easy bleeding, easy bruising ED Past Medical Hx - Past Medical History Hx Hypertension: Yes (x 3 yrs) Hx Congestive Heart Failure: No Hx Diabetes: Yes Hx Deep Vein Thrombosis: No Hx Renal Disease: No Hx Sickle Cell Disease: Yes (Trait only) Hx Arthritis: Yes Hx Seizures: No Hx Psychiatric Treatment: Yes (anxiety) Hx Asthma: No Hx COPD: No Hx HIV: No Additional medical history: SICKLE CELL TRAIT - Surgical History Additional Surgical History: 4 c-sections - Social History Smoking Status: Current Every Day Smoker Substance Use Type: None - Medications Home Medications: Home Medications Medication Instructions Recorded Confirmed Last Taken Type Detemir (Nf) [Levemir (Nf)] 35 units SQ QHS 12/29/17 01/06/18 01/05/18 23:00 History 35 UNITS Insulin Aspart [NovoLOG 100 15 units SQ AC 12/29/17 01/06/18 01/05/18 19:00 History UNITS/ML VIAL] 15 UNITS amLODIPine [Norvasc] 10 mg PO DAILY #30 tab 01/01/18 01/06/18 01/06/18 07:00 Rx Epipen 1 dose SQ QDAY PRN 01/06/18 01/06/18 03/31/15 History cloNIDine [Catapres] 0.2 mg PO QDAY 01/06/18 01/06/18 01/06/18 07:00 History Acetaminophen/Codeine [Tylenol 1 tab PO Q6H PRN #12 tab 10/11/18 Unknown Rx /Codeine # 3 tab] Ibuprofen [Motrin 800 MG tab] 800 mg PO Q8HR PRN #30 tablet 10/11/18 Unknown Rx Nitrofurantoin [place]/M-Cryst 100 mg PO Q12HR 7 Days #14 capsule 10/11/18 Unknown Rx [Macrobid CAP] medroxyPROGESTERone ACETATE 10 mg PO QDAY #10 tablet 10/11/18 Unknown Rx [Provera] ED Physical Exam - General Limitations: No Limitations General appearance: alert, in no apparent distress - Head Head exam: Present: atraumatic, normocephalic - Neck Neck exam: Present: normal inspection, full ROM. Absent: tenderness, menin gismus, lymphadenopathy - Respiratory Respiratory exam: Present: normal lung sounds bilaterally. Absent: respiratory distress, wheezes, rales, rhonchi, stridor, chest wall tenderness, accessory muscle use, decreased breath sounds, prolonged expiratory - Cardiovascular Cardiovascular Exam: Present: regular rate, normal rhythm, normal heart sounds. Absent: bradycardia, tachycardia, irregular rhythm, systolic murmur, diastolic murmur, rubs, gallop - GI/Abdominal GI/Abdominal exam: Present: soft, normal bowel sounds. Absent: distended, tenderness, guarding, rebound, rigid, diminished bowel sounds - Extremities Exam Extremities exam: Present: normal inspection, full ROM - Back Exam Back exam: Present: normal inspection, full ROM. Absent: tenderness, CVA tenderness (R), CVA tenderness (L), muscle spasm, paraspinal tenderness, vertebral tenderness, rash noted - Neurological Exam Neurological exam: Present: alert, oriented X3, normal gait - Psychiatric Psychiatric exam: Present: normal affect, normal mood - Skin Skin exam: Present: warm, dry, intact, normal color. Absent: rash ED Course Vital Signs 10/11/18 10/11/18 15:25 16:02 Temperature 97.8 F Pulse Rate 75 Respiratory 20 18 Rate Blood Pressure 131/84 O2 Sat by Pulse 99 Oximetry - Reevaluation(s) Reevaluation #1: 10/11/18 18:15 Patient is speaking in full sentences with no signs of distress noted. ED Medical Decision Making - Lab Data Result diagrams: 10/11/18 16:11 10/11/18 16:11 - Medical Decision Making This is a 43-year-old female that presents with dysmenorrhea. Patient is stable and was examined by me. There is no abdominal tenderness. Negative signs of symptoms of appendicitis. Labs obtained and unremarkable. Compared to this morning laboratory is within normal limitsined. UA obtained. Ultrasound was reviewed from yesterday with a preliminary report of fibroid that is 3.[address] of abdomen obtained and dictated by the radiologist. Patient is notified of the report with no questions noted by the patient. Vital signs are stable prior to discharge. Patient received medical treatment in the ED which patient stated symptoms of pain has resolved and subsided. Patient stated that she does not have allergies to morphine or Tylenol with codeine. Was instructed note to o perate any machinery due to possible drowsiness and stated someone will drive the patient home. A by mouth challenge has been obtained and patient tolerated well with no nausea vomiting. Patient was also instructed to Follow-up with a OBGYN doctor in 3-5 days or if symptoms worsen and continue return to emergency room as soon as possible. At time of discharge, the patient does not seem toxic or ill in appearance. No acute signs of distress noted. Patient agrees to discharge treatment plan of care. No further questions noted by the patient. Critical care attestation.: If time is entered above; I have spent that time in minutes in the direct care of this critically ill patient, excluding procedure time. ED Disposition Clinical Impression: Dysmenorrhea Uterine fibroid Qualifiers: Uterine leiomyoma location: unspecified location Qualified Code(s): D25.9 - Leiomyoma of uterus, unspecified Disposition: DC-01 TO HOME OR SELFCARE Is pt being admited?: No Does the pt Need Aspirin: No Condition: Stable Instructions: Dysmenorrhea (ED), Acetaminophen/Codeine (By mouth) Additional Instructions: Follow-up with a OBGYN doctor in 3-5 days or if symptoms worsen and continue return to emergency room as soon as possible. Do not operate any machinery while taking Tylenol with codeine as this may cause drowsiness. Prescriptions: Acetaminophen/Codeine [Tylenol /Codeine # 3 tab] 1 tab PO Q6H PRN #12 tab PRN Reason: Pain , Severe (7-10) Referrals: SPUR [facility]SETT MD DONNIE [Primary Care Provider] - 3-5 Days PRIMARY CAREMD [Referring] - 3-5 Days PATRICIA ODELL MD [Staff Physician] - 3-5 Days [facility] [Outside] - 3-5 Days Forms: Work/School Release Form(ED)
--- NOTE | 2018-10-11 18:22 | Cat Scan Report ---
CT ABDOMEN AND PELVIS WITH CONTRAST INDICATION: Pelvic pain CONTRAST: 100 cc Omnipaque 300 IV COMPARISON: 12/20/[address] scans at this location are performed using CT dose reduction for ALARA by means of automated e xposure control. NOTE: Resolution is decreased and artifact is introduced by the patient's size. FINDINGS: Lung bases showed no significant infiltrates. Small calcified granuloma is seen on the righ t. Hypodense area in the inferior base of the right hilum is unchanged. No pneumoperitoneum is seen. Bilateral small renal cysts are again noted. No urinary obstructive changes are seen. No evidence of bowel obstruction is noted. Gallbladder appears within normal limits. Tiny probable cyst is seen in t he right lobe of the liver peripherally. No focal inflammatory changes are seen. Gastric bypass hat[place] es are noted. Appendix is not visualized. A large left ovarian cyst is seen measuring 6.4 cm in greatest diameter with internal density in the water range. On prior study a cyst was present measuring only 1.9 cm. No free fluid is seen. No other masses are noted. IMPRESSION: 1. No acute abnormalities are seen 2. Large left ovarian cyst. Recommend ultrasound follow-up. Signer Name: Justen Rizvi MD Signed: 10/11/2018 6:17 PM Workstation Name: [id number]
== END 2018-10-11 18:43 | disposition home or self-care (01) ==
LOC: ED 14:57
DX: N94.6 Dysmenorrhea, unspecified (principal); D25.9 Leiomyoma of uterus, unspecified; I10 Essential (primary) hypertension; E11.9 Type 2 diabetes mellitus without complications; M19.90 Unspecified osteoarthritis, unspecified site; F41.9 Anxiety disorder, unspecified; F17.200 Nicotine dependence, unspecified, uncomplicated; Z91.030 Bee allergy status; Z88.5 Allergy status to narcotic agent; Z79.4 Long term (current) use of insulin; Z79.899 Other long term (current) drug therapy; Z79.1 Long term (current) use of non-steroidal anti-inflammatories (NSAID)
CPT/HCPCS: 36415; 74177; 80048; 85025; 85610; 85730; 96374; 96375; 99284; J2270; J2405; J7030; Q9967

== ENCOUNTER 2018-10-19 20:45 | Emergency (ER) | payer MEDICARE ==
--- NOTE | 2018-10-19 21:12 | Emergency Department Report ---
Blank Doc - Documentation Documentation: This is a 43-year-old female that presents with left pelvic pain with history of uterine cysts. This initial assessment/diagnostic orders/clinical plan/treatment(s) is/are subject to change based on patient's health status, clinical progression and re- assessment by fellow clinical providers in the ED. Further treatment and workup at subsequent clinical providers discretion. Patient/guardians urged not to elope from the ED as their condition may be serious if not clinically assessed and managed. Initial orders include: 1- Patient sent to [facility] for further evaluation and treatment 2- UA 3- labs
[2018-10-19 21:53] LABS: Basophils # (Auto) 0.2 K/mm3 (0.0-0.1); Eosinophils # (Auto) 0.1 K/mm3 (0.0-0.4); Hematocrit 29.6 % (30.3-42.9); Hemoglobin 9.9 gm/dl (10.1-14.3); Lymphocytes # (Auto) 3.2 K/mm3 (1.2-5.4); Lymphocytes % (Auto) 44.7 % (13.4-35.0); Mean Corpuscular HGB Conc 34 % (30-34); Mean Corpuscular Volume 81 fl (79-97); Monocytes # (Auto) 0.5 K/mm3 (0.0-0.8); Monocytes % (Auto) 7.3 % (0.0-7.3); Platelet Count 319 K/mm3 (140-440); Red Blood Count 3.66 M/mm3 (3.65-5.03); Red Cell Distribution Width 16.9 % (13.2-15.2)
[2018-10-19 22:03] LABS: BUN/Creatinine Ratio 11; Blood Urea Nitrogen 11 mg/dL (7-17); Calcium 8.8 mg/dL (8.4-10.2); Hemolysis Index 5
[2018-10-19] MEDS ORDERED: IBUPROFEN PO ONE ×2 (22:11→22:14)
[2018-10-19 22:30] LABS: Bacteria,Urine 1+ /HPF (Negative); Bilirubin,Urine NEG (Negative); Blood,Urine NEG (Negative); Color,Urine Yellow (Yellow); Protein,Urine <15 mg/dL mg/dL (Negative)
[2018-10-19] MEDS ORDERED: ZOFRAN ODT PO ONE (22:47)
[2018-10-19] MEDS ORDERED: TYLENOL PO ONE (22:49)
--- NOTE | 2018-10-20 00:51 | Ultrasound Report ---
ULTRASOUND PELVIS INDICATION: pelvic pain. TECHNIQUE: Transabdominal and Transvaginal. Duplex Color Doppler used: Yes. COMPARISON: Pelvic ultrasound from 10/11/2018 FINDINGS: Uterus: Present. Size: 12.3 x 5.8 x 7.7 cm. Endometrial complex: Normal measuring 0.7 cm. Mass lesions: The previously described possible uterine fundal fibroid is unchanged. No additional brown spicious lesion. Additional findings: None. Right Ovary: Size: 3.7 x 2.7 x 2.2 cm Blood flow: Normal. Cyst or mass: None. Left Ovary: Size: 5.8 x 4.9 x 4.6 cm Blood flow: Normal. Cyst or mass: A simple appearing cyst measures up to 4.7 cm. No solid lesions. Urinary Bladder: Normal. Free Fluid: None. Additional Findings: None. IMPRESSION: 1. Simple appearing left ovarian cyst measuring up to 4.7 cm. No follow-up imaging is indicated in a patient of this age. 2. Stable probable uterine fundal fibroid. Signer Name: Donny Manzanares MD Signed: 10/20/2018 12:47 AM Workstation Name: [id number]
--- NOTE | 2018-10-20 01:03 | Emergency Department Report ---
ED Female HPI - General Chief complaint: Abdominal Pain Stated complaint: BURST CYST ON LEFT SIDE Time Seen by Provider: 10/19/18 21:10 Source: patient Mode of arrival: Wheelchair Limitations: No Limitations - History of Present Illness Initial comments: pt is a 43 y/o aaf with hx of ovarian cyst and htn who presents for abd pain and cramping states she referred by [facility] for US abd pt states she is schedule for [facility] follow up in 2 weeks for cyst removal, pt denies vaginal bleeding at this time, pain describeds a 5/10 aching and cramp to left flank Complaint: pelvic pain Onset/Timin -: month(s) Location: suprapubic Radiation: L flank Severity: moderate Severity scale (0 -10): 5 Quality: cramping Consistency: constant Worsens with: none Are you Now?: No Last Menstrual Period: 08/31/18 EDC: 06/07/19 Associated Symptoms: abdominal pain - Related Data Sexually active: No Home Medications Medication Instructions Recorded Confirmed Last Taken Detemir (Nf) [Levemir (Nf)] 35 units SQ QHS 12/29/17 01/06/18 01/05/18 23:00 35 UNITS Insulin Aspart [NovoLOG 100 15 units SQ AC 12/29/17 01/06/18 01/05/18 19:00 UNITS/ML VIAL] 15 UNITS Epipen 1 dose SQ QDAY PRN 01/06/18 01/06/18 03/31/15 cloNIDine [Catapres] 0.2 mg PO QDAY 01/06/18 01/06/18 01/06/18 07:00 Previous Rx's Medication Instructions Recorded Last Taken Type amLODIPine [Norvasc] 10 mg PO DAILY #30 tab 01/01/18 01/06/18 07:00 Rx Acetaminophen/Codeine [Tylenol 1 tab PO Q6H PRN #12 tab 10/11/18 Unknown Rx /Codeine # 3 tab] Ibuprofen [Motrin 800 MG tab] 800 mg PO Q8HR PRN #30 tablet 10/11/18 Unknown Rx Nitrofurantoin [place]/M-Cryst 100 mg PO Q12HR 7 Days #14 capsule 10/11/18 Unknown Rx [Macrobid CAP] medroxyPROGESTERone ACETATE 10 mg PO QDAY #10 tablet 10/11/18 Unknown Rx [Provera] Ibuprofen [Motrin 800 MG tab] 800 mg PO Q8HR PRN #30 tablet 10/20/18 Unknown Rx Nitrofurantoin [place]/M-Cryst 100 mg PO BID 7 Days #14 capsule 10/20/18 Unknown Rx [Macrobid CAP] Allergies Allergy/AdvReac Type Severity Reaction Status Date / Time venom-honey bee Allergy Severe Anaphylaxis Verified 01/01/18 09:35 [bee venom (honey bee)] hydrocodone Allergy Nausea Verified 01/01/18 09:35 ED Review of Systems ROS: Stated complaint: BURST CYST ON LEFT SIDE Other details as noted in HPI Constitutional: denies: chills, fever Eyes: denies: eye pain, eye discharge, vision change ENT: denies: ear pain, throat pain Respiratory: denies: cough, shortness of breath, wheezing Cardiovascular: denies: chest pain, palpitations Endocrine: no symptoms reported Gastrointestinal: abdominal pain. denies: nausea, vomiting, diarrhea, constipation Genitourinary: denies: urgency, dysuria, frequency, hematuria Musculoskeletal: denies: back pain, joint swelling, arthralgia Skin: denies: rash, lesions Neurological: denies: headache, weakness, paresthesias Psychiatric: denies: anxiety, depression Hematological/Lymphatic: denies: easy bleeding, easy bruising ED Past Medical Hx - Past Medical History Previous Medical History?: Yes Hx Hypertension: Yes (x 3 yrs) Hx Congestive Heart Failure: No Hx Diabetes: Yes Hx Deep Vein Thrombosis: No Hx Renal Disease: No Hx Sickle Cell Disease: Yes (Trait only) Hx Arthritis: Yes Hx Seizures: No Hx Psychiatric Treatment: Yes (anxiety) Hx Asthma: No Hx COPD: No Hx HIV: No Additional medical history: SICKLE CELL TRAIT - Surgical History Past Surgical History?: Yes Additional Surgical History: 4 c-sections - Social History Smoking Status: Never Smoker - Medications Home Medications: Home Medications Medication Instructions Recorded Confirmed Last Taken Type Detemir (Nf) [Levemir (Nf)] 35 units SQ QHS 12/29/17 01/06/18 01/05/18 23:00 History 35 UNITS Insulin Aspart [NovoLOG 100 15 units SQ AC 12/29/17 01/06/18 01/05/18 19:00 History UNITS/ML VIAL] 15 UNITS amLODIPine [Norvasc] 10 mg PO DAILY #30 tab 01/01/18 01/06/1801/06/18 07:00 Rx Epipen 1 dose SQ QDAY PRN 01/06/18 01/06/18 03/31/15 History cloNIDine [Catapres] 0.2 mg PO QDAY 01/06/18 01/06/18 01/06/18 07:00 History Acetaminophen/Codeine [Tylenol 1 tab PO Q6H PRN #12 tab 10/11/18 Unknown Rx /Codeine # 3 tab] Ibuprofen [Motrin 800 MG tab] 800 mg PO Q8HR PRN #30 tablet 10/11/18 Unknown Rx Nitrofurantoin [place]/M-Cryst 100 mg PO Q12HR 7 Days #14 capsule 10/11/18 Unknown Rx [Macrobid CAP] medroxyPROGESTERone ACETATE 10 mg PO QDAY #10 tablet 10/11/18 Unknown Rx [Provera] Ibuprofen [Motrin 800 MG tab] 800 mg PO Q8HR PRN #30 tablet 10/20/18 Unknown Rx Nitrofurantoin [place]/M-Cryst 100 mg PO BID 7 Days #14 capsule 10/20/18 Unknown Rx [Macrobid CAP] ED Physical Exam - General Limitations: No Limitations General appearance: alert, in no apparent distress - Head Head exam: Present: atraumatic, normocephalic - Eye Eye exam: Present: normal appearance, PERRL, EOMI - ENT ENT exam: Present: mucous membranes moist - Neck Neck exam: Present: normal inspection, full ROM. Absent: tenderness, lymphadenopathy - Respiratory Respiratory exam: Present: normal lung sounds bilaterally. Absent: respiratory distress, wheezes, stridor, chest wall tenderness - Cardiovascular Cardiovascular Exam: Present: regular rate, normal heart sounds - GI/Abdominal GI/Abdominal exam: Present: soft, normal bowel sounds. Absent: distended, tenderness, guarding, rebound, rigid, bruit, hernia - Rectal Rectal exam: Present: deferred - External exam: Present: other (deferred by patient ) - Extremities Exam Extremities exam: Present: normal inspection, full ROM, normal capillary refill. Absent: tenderness, pedal edema, joint swelling, calf tenderness - Back Exam Back exam: Present: normal inspection, full ROM. Absent: tenderness, CVA tenderness (R), CVA tenderness (L), muscle spasm, rash noted - Neurological Exam Neurological exam: Present: alert, oriented X3, CN II-XII intact, normal gait, reflexes normal. Absent: motor sensory deficit - Psychiatric Psychiatric exam: Present: normal affect, normal mood - Skin Skin exam: Present: warm, dry, intact, normal color. Absent: rash ED Course Vital Signs 10/19/18 20:51 Temperature 98.6 F Pulse Rate 85 Respiratory 18 Rate Blood Pressure 177/112 O2 Sat by Pulse 99 Oximetry ED Medical Decision Making - Lab Data Result diagrams: 10/19/18 21:35 10/19/18 21:35 Labs 10/19/18 10/19/18 10/19/18 21:35 21:35 21:35 WBC 7.1 RBC 3.66 Hgb 9.9 L Hct 29.6 L MCV 81 MCH 27 L MCHC 34 RDW 16.9 H Plt Count 319 Lymph % (Auto) 44.7 H [place] % (Auto) 7.3 Eos % (Auto) 2.0 Baso % (Auto) 3.0 H Lymph # 3.2 [place] # 0.5 Eos # 0.1 Baso # 0.2 H Seg Neutrophils % 43.0 Seg Neutrophils # 3.1 Sodium 141 Potassium 3.8 Chloride 104.7 Carbon Dioxide 27 Anion Gap 13 BUN 11 Creatinine 1.0 Estimated GFR > 60 BUN/Creatinine Ratio 11 Glucose 143 H Calcium 8.8 HCG, Qual Negative Urine Color Urine Turbidity Urine pH Ur Specific [place] Urine Protein Urine Glucose (UA) Urine Ketones Urine Blood Urine Nitrite Urine Bilirubin Urine Urobilinogen Ur Leukocyte Esterase Urine WBC (Auto) Urine RBC (Auto) U Epithel Cells (Auto) Urine Bacteria (Auto) 10/19/18 21:45 WBC RBC Hgb Hct MCV MCH MCHC RDW Plt Count Lymph % (Auto) [place] % (Auto) Eos % (Auto) Baso % (Auto) Lymph # [place] # Eos # Baso # Seg Neutrophils % Seg Neutrophils # Sodium Potassium Chloride Carbon Dioxide Anion Gap BUN Creatinine Estimated GFR BUN/Creatinine Ratio Glucose Calcium HCG, Qual Urine Color Yellow Urine Turbidity Clear Urine pH 6.0 Ur Specific [place] 1.013 Urine Protein <15 mg/dl Urine Glucose (UA) Neg Urine Ketones Neg Urine Blood Neg Urine Nitrite Neg Urine Bilirubin Neg Urine Urobilinogen 2.0 Ur Leukocyte Esterase Tr Urine WBC (Auto) 1.0 Urine RBC (Auto) 2.0 U Epithel Cells (Auto) 3.0 Urine Bacteria (Auto) 1+ - Radiology Data Radiology results: report reviewed, image reviewed ULTRASOUND PELVIS INDICATION: pelvic pain. TECHNIQUE: Transabdominal and Transvaginal. Duplex Color Doppler used: Yes. COMPARISON: Pelvic ultrasound from 10/11/2018 FINDINGS: Uterus: Present. Size: 12.3 x 5.8 x 7.7 cm. Endometrial complex: Normal measuring 0.7 cm. Mass lesions: The previously described possible uterine fundal fibroid is unchanged. No additional suspicious lesion. Additional findings: None. Right Ovary: Size: 3.7 x 2.7 x 2.2 cm Blood flow: Normal. Cyst or mass: None. Left Ovary: Size: 5.8 x 4.9 x 4.6 cm Blood flow: Normal. Cyst or mass: A simple appearing cyst measures up to 4.7 cm. No solid lesions. Urinary Bladder: Normal. Free Fluid: None. Additional Findings: None. IMPRESSION: 1. Simple appearing left ovarian cyst measuring up to 4.7 cm. No follow-up imaging is indicated in a patient of this age. 2. Stable probable uterine fundal fibroid. Signer Name: Donny Manzanares MD Signed: 10/20/2018 12:47 AM Workstation Name: [id number] Transcribed By: [place] Dictated By: Donny Manzanares MD Electronically Authenticated By: Donny Manzanares MD Signed Date/Time: 10/20/1846 DD/ TD/TT: - Medical Decision Making US: left Ovarian Cyst, Uterine Fibroid, ua: trace luek bacteria, cbc: h/h 9.9 / 29.9 plan; ibuprofen, macrobid, follow up with [facility] as scheduled return to ed if symptms worsen. pt verbalized agreement and understanding and agreement with discharge plan, Critical care attestation.: If time is entered above; I have spent that time in minutes in the direct care of this critically ill patient, excluding procedure time. ED Disposition Clinical Impression: Fibroid Ovarian cyst Qualifiers: Laterality: left Qualified Code(s): N83.202 - Unspecified ovarian cyst, left side Disposition: DC-01 TO HOME OR SELFCARE Is pt being admited?: No Does the pt Need Aspirin: No Condition: Stable Instructions: Ovarian Cyst (ED), Uterine Fibroids (ED) Prescriptions: Nitrofurantoin [place]/M-Cryst [Macrobid CAP] 100 mg PO BID 7 Days #14 capsule Ibuprofen [Motrin 800 MG tab] 800 mg PO Q8HR PRN #30 tablet PRN Reason: pain Referrals: KAYODE BRIGGS MD [Primary Care Provider] - 3-5 Days SEPIDEH MARIE MD [Staff Physician] - 3-5 Days Forms: Work/School Release Form(ED) Time of Disposition: 01:11
[2018-10-20 02:34] VITALS: BP 168/92
== END 2018-10-20 01:25 | disposition home or self-care (01) ==
LOC: ED 20:45
DX: N83.202 Unspecified ovarian cyst, left side (principal); D25.9 Leiomyoma of uterus, unspecified; I10 Essential (primary) hypertension; E11.9 Type 2 diabetes mellitus without complications; M19.90 Unspecified osteoarthritis, unspecified site; F41.9 Anxiety disorder, unspecified; Z98.890 Other specified postprocedural states; Z79.899 Other long term (current) drug therapy; Z79.4 Long term (current) use of insulin; Z88.6 Allergy status to analgesic agent; Z91.030 Bee allergy status
CPT/HCPCS: 36415; 76830; 76856; 80048; 81001; 84703; 85025; 99284; Q0162

== ENCOUNTER 2018-12-20 09:08 | Emergency (ER) | payer MEDICARE ==
[2018-12-20 09:23] VITALS: BP 166/108
[2018-12-20] MEDS ORDERED: KETOROLAC 60 MG/2 ML INJ IM ONE (09:53)
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
[2018-12-20 10:02] LABS: HCG Qualitative,Urine Negative (Negative)
--- NOTE | 2018-12-20 10:46 | XRay Report ---
LEFT KNEE, 3 VIEWS 12/20/2018 INDICATION / CLINICAL INFORMATION: knee pain. COMPARISON: 11/02/2017 FINDINGS: Mild tricompartment degenerative changes. Osteophytic spurring is seen in the medial compartment. No evidence of fracture or dislocation. No joint effusion. Signer Name: Filiberto Quiros MD Signed: 12/20/2018 10:42 AM Workstation Name: [email or web address]
== END 2018-12-20 11:39 | disposition home or self-care (01) ==
LOC: ED 09:08
DX: M25.562 Pain in left knee (principal); M54.5 Low back pain; I10 Essential (primary) hypertension; E11.9 Type 2 diabetes mellitus without complications; M19.90 Unspecified osteoarthritis, unspecified site; F41.9 Anxiety disorder, unspecified; Z79.4 Long term (current) use of insulin; Z79.899 Other long term (current) drug therapy; Z91.030 Bee allergy status; Z88.5 Allergy status to narcotic agent
CPT/HCPCS: 73562; 81025; 99283; J1885; 96372

== ENCOUNTER 2019-08-06 01:21 | Emergency (ER) | payer MEDICARE ==
[2019-08-06 03:37] LABS: Bilirubin,Urine NEG (Negative); Blood,Urine SM (Negative); Color,Urine Yellow (Yellow); Protein,Urine <15 mg/dL mg/dL (Negative); Urobilinogen,Urine < 2.0 mg/dL (<2.0); WBC,Urine < 1.0 /HPF (0.0-6.0)
[2019-08-06 03:48] LABS: HCG Qualitative,Urine Negative (Negative); RBC,Urine < 1.0 /HPF (0.0-6.0)
--- NOTE | 2019-08-06 03:52 | XRay Report ---
ABDOMEN 2 VIEW(S) INDICATION / CLINICAL INFORMATION: MAIN: Abdominal pain - Constipation X 2 DAYS. COMPARISON: None available. FINDINGS: TUBES / LINES: None. BOWEL GAS PATTERN: Negative for obstruction or free air. Large amount of colonic stool. ADDITIONAL FINDINGS: Previous occlusion right fallopian tubes. IMPRESSION: Constipation. Signer Name: Rigoberto Hilario MD Signed: 08/06/2019 3:48 AM Workstation Name: [id number]
[2019-08-06] MEDS ORDERED: LACTULOSE 20 GM/30 ML ORAL LIQD PO ONE (04:09)
[2019-08-06] MEDS ORDERED: MAGNESIUM CITRATE 300 ML ORAL LIQD PO ONE (04:09)
--- NOTE | 2019-08-06 04:34 | Emergency Department Report ---
ED Abdominal Pain HPI - General Chief Complaint: Abdominal Pain Stated Complaint: CONSTIPATED Source: patient Mode of arrival: Ambulatory Limitations: No Limitations - History of Present Illness Initial Comments: Patient is a 44-year-old -[place] female with a history of hypertension and chronic low back pain and who takes amlodipine and Percocet 10 mg-325mg respectively presents to the ED with acute onset persistent constipation for the last 2 days. Patient states that she took MiraLAX at home twice but only little pellets of stool came out leaving a large chunk of stool in her rectum. Patient states that she does not take any stool softener with her narcotic pain medication because she did not know that it could cause constipation. Patient denies abdominal pain, nausea, vomiting, dysuria, urinary frequency and urgency, rectal bleeding, vaginal bleeding, hematemesis, fever, chills, cough, chest pain or shortness of breath MD Complaint: abdominal pain, other (constipated) -: Sudden, days(s) (2) Location: diffuse Radiation: none Migration to: no migration Severity scale (0 -10): 0 Quality: dull Consistency: constant Improves With: nothing Worsens With: nothing Context: other (Currently on Percocet 10mg-325mg for chronic back pain) Associated Symptoms: denies other symptoms, constipation. denies: nausea, vomiting, diarrhea, fever, chills, dysuria, hematemesis, hematochezia, melena, hematuria, anorexia, syncope, other - Related Data LMP Date: 07/30/19 Home Medications Medication Instructions Recorded Confirmed Last Taken Detemir (Nf) [Levemir (Nf)] 35 units SQ QHS 12/29/17 01/06/18 01/05/18 23:00 35 UNITS Insulin Aspart (Nf) [NovoLOG 100 15 units SQ AC 12/29/17 01/06/18 01/05/18 19:00 UNITS/ML VIAL] 15 UNITS Epipen 1 dose SQ QDAY PRN 01/06/18 01/06/18 03/31/15 cloNIDine [Catapres] 0.2 mg PO QDAY 01/06/18 01/06/18 01/06/18 07:00 Previous Rx's Medication Instructions Recorded Last Taken Type amLODIPine 10 mg PO DAILY #30 tab 01/01/18 01/06/18 07:00 Rx Acetaminophen/Codeine [Tylenol 1 tab PO Q6H PRN #12 tab 10/11/18 Unknown Rx /Codeine # 3 tab] Ibuprofen [Motrin 800 MG tab] 800 mg PO Q8HR PRN #30 tablet 10/11/18 Unknown Rx Nitrofurantoin [place]/M-Cryst 100 mg PO Q12HR 7 Days #14 capsule 10/11/18 Unknown Rx [Macrobid CAP] medroxyPROGESTERone ACETATE 10 mg PO QDAY #10 tablet 10/11/18 Unknown Rx [Provera] Ibuprofen [Motrin 800 MG tab] 800 mg PO Q8HR PRN #30 tablet 10/20/18 Unknown Rx Nitrofurantoin [place]/M-Cryst 100 mg PO BID 7 Days #14 capsule 10/20/18 Unknown Rx [Macrobid CAP] Naproxen [Naprosyn] 500 mg PO BID #14 tablet 12/20/18 Unknown Rx Acetaminophen [Acetaminophen 8 650 mg PO Q8H PRN #15 tablet.er 12/21/18 Unknown Rx Hour] Docusate Sodium [Colace] 100 mg PO Q12H PRN #120 capsule 08/06/19 Unknown Rx Glycerin Adult 2 gm 1 supp IN DAILY PRN #15 supp.rect 08/06/19 Unknown Rx Magnesium Citrate 296 ml PO ONCE #2 bottle 08/06/19 Unknown Rx Allergies Allergy/AdvReac Type Severity Reaction Status Date / Time venom-honey bee Allergy Severe Anaphylaxis Verified 01/01/18 09:35 [bee venom (honey bee)] hydrocodone Allergy Nausea Verified 01/01/18 09:35 ED Review of Systems ROS: Stated complaint: CONSTIPATED Other details as noted in HPI Constitutional: denies: chills, fever Eyes: denies: eye pain, eye discharge, vision change ENT: denies: ear pain, throat pain Respiratory: denies: cough, shortness of breath, wheezing Cardiovascular: denies: chest pain, palpitations Endocrine: no symptoms reported Gastrointestinal: constipation. denies: abdominal pain, nausea, vomiting, diarrhea, hematochezia Genitourinary: denies: urgency, dysuria, discharge Musculoskeletal: denies: back pain, joint swelling, arthralgia Skin: denies: rash, lesions Neurological: denies: headache, weakness, paresthesias Psychiatric: denies: anxiety, depression Hematological/Lymphatic: denies: easy bleeding, easy bruising ED Past Medical Hx - Past Medical History Hx Hypertension: Yes (x 3 yrs) Hx Congestive Heart Failure: No Hx Diabetes: Yes Hx Deep Vein Thrombosis: No Hx Renal Disease: No Hx Sickle Cell Disease: Yes (Trait only) Hx Arthritis: Yes Hx Seizures: No Hx Psychiatric Treatment: Yes (anxiety) Hx Asthma: No Hx COPD: No Hx HIV: No Additional medical history: SICKLE CELL TRAIT - Surgical History Additional Surgical History: 4 c-sections - Social History Smoking Status: Never Smoker Substance Use Type: Alcohol - Medications Home Medications: Home Medications Medication Instructions Recorded Confirmed Last Taken Type Detemir (Nf) [Levemir (Nf)] 35 units SQ QHS 12/29/17 01/06/18 01/05/18 23:00 History 35 UNITS Insulin Aspart (Nf) [NovoLOG 100 15 units SQ AC 12/29/17 01/06/18 01/05/18 19:00 History UNITS/ML VIAL] 15 UNITS amLODIPine 10 mg PO DAILY #30 tab 01/01/18 01/06/18 01/06/18 07:00 Rx Epipen 1 dose SQ QDAY PRN 01/06/18 01/06/18 03/31/15 History cloNIDine [Catapres] 0.2 mg PO QDAY 01/06/18 01/06/18 01/06/18 07:00 History Acetaminophen/Codeine [Tylenol 1 tab PO Q6H PRN #12 tab 10/11/18 Unknown Rx /Codeine # 3 tab] Ibuprofen [Motrin 800 MG tab] 800 mg PO Q8HR PRN #30 tablet 10/11/18 Unknown Rx Nitrofurantoin [place]/M-Cryst 100 mg PO Q12HR 7 Days #14 capsule 10/11/18 Unknown Rx [Macrobid CAP] medroxyPROGESTERone ACETATE 10 mg PO QDAY #10 tablet 10/11/18 Unknown Rx [Provera] Ibuprofen [Motrin 800 MG tab] 800 mg PO Q8HR PRN #30 tablet 10/20/18 Unknown Rx Nitrofurantoin [place]/M-Cryst 100 mg PO BID 7 Days #14 capsule 10/20/18 Unknown Rx [Macrobid CAP] Naproxen [Naprosyn] 500 mg PO BID #14 tablet 12/20/18 Unknown Rx Acetaminophen [Acetaminophen 8 650 mg PO Q8H PRN #15 tablet.er 12/21/18 Unknown Rx Hour] Docusate Sodium [Colace] 100 mg PO Q12H PRN #120 capsule 08/06/19 Unknown Rx Glycerin Adult 2 gm 1 supp IN DAILY PRN #15 supp.rect 08/06/19 Unknown Rx Magnesium Citrate 296 ml PO ONCE #2 bottle 08/06/19 Unknown Rx ED Physical Exam - General Limitations: No Limitations General appearance: alert, in no apparent distress - Head Head exam: Present: atraumatic, normocephalic, normal inspection - Eye Eye exam: Present: normal appearance, PERRL, EOMI Pupils: Present: normal accommodation - ENT ENT exam: Present: normal exam, normal orophraynx, mucous membranes moist, TM's normal bilaterally, normal external ear exam - Neck Neck exam: Present: normal inspection, full ROM - Respiratory Respiratory exam: Present: normal lung sounds bilaterally. Absent: respiratory distress, wheezes, rales, chest wall tenderness, accessory muscle use, decreased breath sounds - Cardiovascular Cardiovascular Exam: Present: regular rate, normal rhythm, normal heart sounds. Absent: systolic murmur, diastolic murmur, rubs, gallop - GI/Abdominal GI/Abdominal exam: Present: soft, normal bowel sounds. Absent: tenderness, guarding, rebound, hyperactive bowel sounds, hypoactive bowel sounds, organomegaly - Extremities Exam Extremities exam: Present: normal inspection, full ROM, normal capillary refill - Back Exam Back exam: Present: normal inspection, full ROM. Absent: tenderness, CVA tenderness (R), CVA tenderness (L), muscle spasm, paraspinal tenderness, vertebral tenderness - Neurological Exam Neurological exam: Present: alert, oriented X3, CN II-XII intact, normal gait, reflexes normal - Psychiatric Psychiatric exam: Present: normal affect, normal mood - Skin Skin exam: Present: warm, dry, intact, normal color. Absent: rash ED Course Vital Signs 08/06/19 01:25 Temperature 98.1 F Pulse Rate 98 H Respiratory 18 Rate Blood Pressure 192/115 O2 Sat by Pulse 94 Oximetry ED Medical Decision Making - Radiology Data Radiology results: report reviewed, image reviewed Findings [facility] [address] [place] [address] XRay Report Signed Patient: WAYLON NEWELL MR#: [id number] : 1975 Acct:[id number] Age/Sex: 44 / F ADM Date: 08/06/19 Loc: ED Attending Dr: Ordering Physician: JOSE ANGEL SANZ Date of Service: 08/06/19 Procedure(s): XR abdomen 2V Accession Number(s): [id number] cc: JOSE ANGEL SANZ Fluoro Time In Minutes: ABDOMEN 2 VIEW(S) INDICATION / CLINICAL INFORMATION: MAIN: Abdominal pain - Constipation X 2 DAYS. COMPARISON: None available. FINDINGS: TUBES / LINES: None. BOWEL GAS PATTERN: Negative for obstruction or free air. Large amount of colonic stool. ADDITIONAL FINDINGS: Previous occlusion right fallopian tubes. IMPRESSION: Constipation. Signer Name: Rigoberto Hilario MD Signed: 08/06/2019 3:48 AM Workstation Name: [id number] Transcribed By: SHIVANI Dictated By: Rigoberto Hilario MD Electronically Authenticated By: Rigoberto Hilario MD Signed Date/Time: 08/06/19347 DD/ 5 TD/TT - Medical Decision Making This is a 44-year-old -[place] female with a history of hypertension and chronic low back pain and who takes amlodipine and Percocet 10 mg-325mg respectively presents to the ED with acute onset persistent constipation for the last 2 days. Patient states that she took MiraLAX at home twice but only little pellets of stool came out leaving a large chunk of stool in her rectum. Patient states that she does not take any stool softener with her narcotic pain medication because she did not know that it could cause constipation. In the ED, patient is alert and oriented x3 and is not in distress. Urinalysis is unremarkable. Abdomen x-ray was negative for obstruction or free air but showed a large amount of colonic stool. Patient was treated for constipation with magnesium citrate in the ED. Patient was discharged home on more prescription for magnesium citrate, docusate sodium and glycerin suppository. Patient was advised to take stool softeners with her narcotic pain medication to prevent constipation. Patient was advised to follow-up with her primary care physician in 5 to 7 days for reevaluation or return to the ED immediately if symptoms get worse. - Differential Diagnosis constipation; SBO; UTI Critical care attestation.: If time is entered above; I have spent that time in minutes in the direct care of this critically ill patient, excluding procedure time. ED Disposition Clinical Impression: Constipation due to opioid therapy Disposition: TO HOME OR SELFCARE Is pt being admited?: No Does the pt Need Aspirin: No Condition: Stable Instructions: Constipation (ED) Additional Instructions: Your x-ray shows significant constipation, which is caused by the opioid pain medications you currently take for your chronic back pain. Therefore take medications such as stool softeners when on these types of medications to prevent constipation. Follow-up with your primary care physician in 5 to 7 days for reevaluation. Return to the ED immediately if symptoms get worse. Prescriptions: Docusate Sodium [Colace] 100 mg PO Q12H PRN #120 capsule PRN Reason: Constipation Glycerin Adult 2 gm 1 supp IN DAILY PRN #15 supp.rect PRN Reason: Constipation Magnesium Citrate 296 ml PO ONCE #2 bottle Referrals: [facility] [Provider Group] - 3-5 Days Time of Disposition: 04:31 Print Language: TRISTANIAN
[2019-08-06 05:02] VITALS: BP 160/98
== END 2019-08-06 05:01 | disposition home or self-care (01) ==
LOC: ED 01:21
DX: K59.03 Drug induced constipation (principal); I10 Essential (primary) hypertension; M19.90 Unspecified osteoarthritis, unspecified site; E11.9 Type 2 diabetes mellitus without complications; F41.9 Anxiety disorder, unspecified; Z79.899 Other long term (current) drug therapy; Z91.030 Bee allergy status; Z88.8 Allergy status to other drugs, medicaments and biological substances; T40.2X5A Adverse effect of other opioids, initial encounter; Y92.89 Other specified places as the place of occurrence of the external cause
CPT/HCPCS: 74019; 81001; 81025

== ENCOUNTER 2020-04-05 09:33 | Emergency (ER) | payer OTHER, MEDICARE ==
[2020-04-05 09:58] VITALS: BP 146/105
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
== END 2020-04-05 10:52 | disposition home or self-care (01) ==
LOC: ED 09:33
DX: S80.02XA Contusion of left knee, initial encounter (principal); S39.012A Strain of muscle, fascia and tendon of lower back, initial encounter; I10 Essential (primary) hypertension; K21.9 Gastro-esophageal reflux disease without esophagitis; M19.90 Unspecified osteoarthritis, unspecified site; F41.9 Anxiety disorder, unspecified; Z79.4 Long term (current) use of insulin; Z79.899 Other long term (current) drug therapy; Z88.6 Allergy status to analgesic agent; Z91.030 Bee allergy status; V49.69XA Unspecified car occupant injured in collision with other motor vehicles in traffic accident, initial encounter; Y93.89 Activity, other specified; Y92.488 Other paved roadways as the place of occurrence of the external cause; Y99.8 Other external cause status
CPT/HCPCS: 99282

== ENCOUNTER 2020-11-29 06:44 | Day surgery (SDC) | payer MEDICARE ==
[2020-11-27 10:53] LABS: Hematocrit 30.4 % (30.3-42.9); Hemoglobin 10.2 gm/dl (10.1-14.3); Mean Corpuscular HGB Conc 34 % (30-34); Mean Corpuscular Volume 77 fl (79-97); Platelet Count 279 K/mm3 (140-440); Red Blood Count 3.95 M/mm3 (3.65-5.03); Red Cell Distribution Width 17.5 % (13.2-15.2)
[2020-11-27 11:13] LABS: Blood Urea Nitrogen 10 mg/dL (7-17); Calcium 9.2 mg/dL (8.4-10.2); Hemolysis Index 0
[2020-11-27 11:15] LABS: BUN/Creatinine Ratio 14
--- NOTE | 2020-11-28 17:18 | Short Stay Summary ---
Short Stay Documentation Date of service: 11/29/20 Narrative H&P: 45y/o with dysfunctional uterine bleeding and undesired fertility. Pelvic ultrasound demonstrates a mildly enlarged uterus measuring 10cm with small leiomyomas. The patient has elected for permanent sterilization and surgical management of her bleeding Patient has been reassessed/reevaluated/re-examined. H&P has been reviewed. No interval changes. - History Principal diagnosis: DUB and undesired fertility Past Medical History: diabetes, hypertension Past Surgical History: , Other (gastric bypass) Social history: single - Allergies and Medications Current Medications: Allergies venom-honey bee [bee venom (honey bee)] Allergy (Severe, Verified 11/24/20 15:58) Anaphylaxis hydrocodone Allergy (Verified 11/24/20 15:58) Nausea Home Medications Medication Instructions Recorded Confirmed Last Taken Type amLODIPine 10 mg PO DAILY #30 tab 01/01/18 11/24/20 01/06/18 07:00 Rx Epipen 1 dose SQ QDAY PRN 01/06/18 11/24/20 03/31/15 History hydroCHLOROthiazide 12.5 mg PO DAILY 09/14/20 11/24/20 Unknown History [Hydrochlorothiazide] Dulaglutide [Trulicity] 1.5 mg SQ QWEEK 11/24/20 11/24/20 Unknown History metFORMIN [Glucophage] 500 mg PO BID 11/24/20 11/24/20 Unknown History - Physical exam General appearance: no acute distress Integumentary: no rash HEENT: Atraumatic Lungs: Clear to auscultation Breasts: deferred Heart: Regular rate Gastrointestinal: normal Female Genitourinary: deferred - Brief post op/procedure progress note Date of procedure: 11/29/20 Pre-op diagnosis: Dysfunctional uterine bleeding and unwanted fertility Post-op diagnosis: same Procedure: Hysteroscopy; endometrial ablation with NovaSure; endometrial polypectomy with MyoSure; laparoscopy; bilateral salpingectomy; extraction of Essure device Anesthesia: HEAVENLY Surgeon: JANINE ESPARZA Estimated blood loss: minimal Pathology: list (Essure; bilateral fallopian tubes) Specimen disposition: to lab Condition: stable - Hospital course Hospital course: The patient was admitted the day of surgery underwent a hysteroscopy endometrial ablation and bilateral salpingectomy. Please see operative note for details of surgery. Her postoperative course was uneventful. - Disposition Condition at discharge: Good Disposition: HOME / SELF CARE / HOMELESS Short Stay Discharge Plan Activity: other (Pelvic rest for 1 week) Diet: regular Additional Instructions: Schedule follow-up with Dr. Esparza in 2 to 4 weeks Pelvic rest for 1 week Prescriptions: Ibuprofen [Motrin] 800 mg PO Q8HR PRN #30 tablet PRN Reason: Pain , Severe (7-10) oxyCODONE /ACETAMINOPHEN [Percocet 5/325] 1 tab PO Q6HR PRN #10 tablet PRN Reason: Pain
[~2020-11-29 06:44] MED LIST changes: +ACETAMINOPHEN 500 MG TAB PO SCH; -ANCEF/STERILE WATER 2 GM/20 ML 2 GM/20 ML SYRINGE IV NR; -APRESOLINE IV PRN; +BUPIVACAINE/PF (0.5%) 5 MG/1 ML 30 ML VIAL INFILTRATI ONE; +CELECOXIB 200 MG CAP PO NR; -FLAGYL 500 MG/100 ML 500 MG/100 ML BAG IV NR; +GABAPENTIN 300 MG CAP PO NR; -LOVENOX SUB-Q NR; +MIDAZOLAM 2 MG/2 ML INJ IV NR; -MYLICON PO PRN; -REGLAN IV PRN; +SCOPOLAMINE TRANSDERMAL PATCH 72 HR TD NR; +SODIUM CHLORIDE 0.9% IRR 1,500 ML BOTTLE IR ONE; -TRANSDERM-SCOP TD SCH; -ZOFRAN IV PRN
[2020-11-29] MEDS ORDERED: BUPIVACAINE/PF (0.5%) 5 MG/1 ML 30 ML VIAL INFILTRATI ONE ×3 (07:17→09:52)
--- NOTE | 2020-11-29 07:56 | Anesthesia Consultation ---
Anesthesia Consult and Med Hx Date of service: 11/29/20 - Airway Anesthetic Teeth Evaluation: Good ROM Head & Neck: Adequate Mental/Hyoid Distance: Adequate Mallampati Class: Class I Intubation Access Assessment: Good - Pre-Operative Health Status ASA Pre-Surgery Classification: ASA2 Proposed Anesthetic Plan: General - Pulmonary Hx Smoking: No Hx Respiratory Symptoms: No - Cardiovascular System Hx Hypertension: Yes (took amlodipine today) Hx Heart Attack/AMI: No - Central Nervous System CVA: No Hx Back Pain: Yes - Endocrine Hx Renal Disease: No Hx Liver Disease: No Hx Non-Insulin Dependent Diabetes: Yes Hx Thyroid Disease: No - Hematic Hx Anemia: Yes - Other Systems Hx Obesity: Yes (BMI 32) - Additional Comments Anesthesia Medical History Comments: No hx anesthetic complications.
--- NOTE | 2020-11-29 07:56 | Anesthesia Day of Surgery ---
Anesthesia Day of Surgery - Day of Surgery Patient Examined: Yes Patient H&P Reviewed: Yes Patient is NPO: Yes
[2020-11-29] MEDS ORDERED: oxyCODONE /ACETAMINOPHEN 5-325MG TAB PO PRN (08:30)
[2020-11-29] MEDS ORDERED: ONDANSETRON 4 MG/2 ML INJ IV PRN (08:30)
[2020-11-29] MEDS ORDERED: HYDROmorphone 1 MG/1 ML INJ ONE (08:32)
[2020-11-29] MEDS ORDERED: propofoL 200 MG/20 ML VIAL IV ONE (08:32)
[2020-11-29] MEDS ORDERED: LIDOCAINE MPF (2%) 20 MG/1 ML VIAL 5 ML ONE (08:33)
[2020-11-29] MEDS ORDERED: ROCURONIUM 50 MG/5 ML INJ IV ONE (08:33)
[2020-11-29] MEDS ORDERED: dexAMETHasone 20 MG/5 ML VIAL ONE (08:54)
[2020-11-29] MEDS ORDERED: ONDANSETRON 4 MG/2 ML INJ ONE (08:55)
[2020-11-29] MEDS ORDERED: SODIUM CHLORIDE 0.9% IRRIG SOLN 2000 ML IR ONE (09:17)
[2020-11-29] MEDS ORDERED: NEOSTIGMINE 10MG/10 ML INJ MDV ONE (09:49)
[2020-11-29] MEDS ORDERED: GLYCOPYRROLATE 0.4 MG/2 ML INJ ONE (09:49)
[2020-11-29] MEDS ORDERED: SODIUM CHLORIDE 0.9% IRR 1,500 ML BOTTLE IR ONE (09:50)
[2020-11-29] MEDS ORDERED: KETOROLAC 30 MG/1 ML INJ ONE (09:52)
--- NOTE | 2020-11-29 10:06 | Operative Report ---
Operative Report Operative Report: Date of surgery: 11/29/2020 Preoperative diagnosis: Unwanted fertility Postoperative diagnosis: Same as above Procedure: Laparoscopy; Bilateral salpingectomy; extraction of Essure device Surgeon: Karla Oh M.D. Anesthesia: General endotracheal anesthesia Estimated blood loss: Minimal Pathology: Bilateral fallopian tubes; Essure device Findings: Normal uterus tubes and ovaries Indication: 45-year-old -0-0-5 with a history of unwanted fertility. The patient has a history of placement of Essure device but elected to undergo definitive surgical management with a bilateral salpingectomy. Procedure: The patient was taken to the operating room and given general endotracheal anesthesia without complication. The patient is prepped and draped in a normal sterile fashion. A bivalve speculum was placed in the patient's vagina and a single-tooth tenaculum was placed on the anterior lip of the cervix .A uterine acorn manipulator was placed, and the bivalve speculum was then removed. Attention was then turned to the patient's abdomen where a 5 mm infraumbilical skin incision was then made. A Veress needle was placed and peritoneal entry was verified water-filled syringe. Insufflation of the peritoneal cavity was performed with CO2 gas. A 5 mm trocar was placed and the laparoscope was then inserted. The patient was then placed in Trendelenburg. A 7 mm suprapubic skin incision was then made. Under direct visualization a 7 mm trocar was then placed. An additional 5 mm left lateral trocar was also placed. General survey of the patient's abdomen revealed normal uterus tubes and ovaries. The fallopian tube was then followed out to the fimbriated end. The LigaSure device was used in order to coagulate and transect the mesosalpinx. There was noted to be an Essure device in the fallopian tube. the fallopian tube was excised from the adnexa. The Essure device was removed from the cornua of the uterus the fallopian tube was removed through the 7 mm trocar. This was performed on the contralateral side as well. The trocars were then removed. The pneumoperitoneum was then released. The 5 mm trocar laparoscope was then removed. The skin incisions were then closed with 4-0 Monocryl. The incisions were injected with quarter percent Marcaine. Dressings were applied to the incision. The vaginal instruments were then removed atraumatically. Then successfully extubated and taken to the recovery room. All sponge laps and needle counts were correct x2. Date of procedure: 11/29/2020 Pre-operative diagnosis: Dysfunctional uterine bleeding Post-operative diagnosis: Same as above; endometrial polyp Procedure name(s): Hysteroscopy; endometrial ablation via NovaSure; endometrial polypectomy with MyoSure device Surgeon: Karla Way M.D. Horseback Excavator: None Anesthesia: General endotracheal anesthesia Findings endometrial polyp originating from the fundus of the uterus Indication: 45-year-old -0-0-5 with a history of dysfunctional uterine bleeding. Procedure The patient was taken to the operating room and given general tracheal anes thesia without complication. The patient was prepped and draped in a normal sterile fashion. A bivalve speculum was placed in the patient's vagina single- tooth tenaculums placed on the anterior lip of the cervix. The cervical os was dilated with graduated dilators. A uterine sound was inserted. The hysteroscope was then placed. Insufflation of the uterine cavity was performed with normal saline. Gen. survey of the uterine cavity revealed endometrial polyp at the fundus of the uterus. The MyoSure device was inserted through the hysteroscope. Extraction of the polyp was performed with the device. The hysteroscope was then removed. The NovaSure device was then inserted. The endometrial length was 6.0cm and the uterine width was 2.8 cm. The device was engaged and it passed the surveillance of the uterine cavity. The NovaSure device was then deployed with a energy of 92 W that lasted for 55 seconds. The NovaSure device was then removed. The hysteroscope was again reinserted. There was evidence of charring of the endometrial surface. The remainder of the vaginal instruments were then removed atraumatically. The patient was then successfully extubated taken to the recovery room. All sponge laps and needle counts were correct 2.
[2020-11-29] MEDS: HYDROmorphone 1 MG/1 ML INJ IV PRN ×2 (10:20→10:35)
[2020-11-29 12:00] VITALS: BP 104/67
== END 2020-11-29 11:40 | disposition home or self-care (01) ==
LOC: OR 06:44
PROVIDERS: ATTEND Obstetrics & Gynecology
DX: N92.5 Other specified irregular menstruation (principal); N93.8 Other specified abnormal uterine and vaginal bleeding; N84.0 Polyp of corpus uteri; I10 Essential (primary) hypertension; E11.9 Type 2 diabetes mellitus without complications; E66.9 Obesity, unspecified; Z79.84 Long term (current) use of oral hypoglycemic drugs; Z79.899 Other long term (current) drug therapy; Z98.890 Other specified postprocedural states; Z68.32 Body mass index [BMI] 32.0-32.9, adult
CPT/HCPCS: 36415; 58563; 58661; 80048; 82962; 84703; 85027; 86850; 86900; 86901; 88302; 88305; A4217; C1782; J1100; J1170; J1885; J2250; J2405; J2704; J2710; J7120

== ENCOUNTER 2020-12-02 23:49 | Emergency (ER) | payer MEDICARE ==
[2020-12-03 01:57] VITALS: BP 161/103
--- NOTE | 2020-12-03 02:27 | Emergency Department Report ---
Chief Complaint: Abdominal Pain Stated Complaint: FOOD POISIN Time Seen by Provider: 12/03/20 02:19 - HPI History of Present Illness: 45-year-old female patient presents to the emergency department requesting evaluation for foodborne illness. Patient and her three children consumed undercooked meat at a local fast food restaurant. Everyone in the household began experiencing the same type of abdominal discomfort after dinner. All four family members are in the emergency department for the same symptoms. Denies fever, nausea, vomiting, diarrhea. Denies all other complaints at this time. - ROS Review of Systems: GENERAL: Negative for fever. ENT: Negative for ear pain/pulling, congestion. CARDIOVASCULAR: Negative for chest pain. PULMONARY: Negative for cough. GASTROINTESTINAL: Positive for abdominal pain. MUSCULOSKELETAL: Negative for joint swelling. NEUROLOGICAL: Negative for seizure. INTEGUMENTARY: Negative for rash. HEMATOLOGICAL: Negative for abnormal bruising/bleeding. - Exam Vital Signs: Vital Signs 12/03/20 01:43 Temperature 97.8 F Pulse Rate 73 Respiratory 18 Rate Blood Pressure 161/103 O2 Sat by Pulse 97 Oximetry Physical Exam: General: Awake, appropriately interactive, no acute distress. Neck: Supple. Full range of motion intact. Cardiovascular: Normal peripheral perfusion. Pulmonary: No respiratory distress. Patient is speaking normally without use of accessory muscles. Abdomen: Soft, nontender, nondistended. Skin: No apparent rashes or lesions. Neurological: No facial asymmetry. Speech is clear. Follows commands. Patient is alert and oriented. Musculoskeletal: Moves all four extremities spontaneously with normal range of motion. Psych: Cooperative. Appropriate mood and affect. MSE screening note: Focused history and physical exam performed. Due to findings the following was ordered: ED Medical Decision Making - Medical Decision Making Patient presents to the emergency department with three family members requesting evaluation for possible exposure to foodborne illness. Patient is afebrile, hemodynamically stable, no distress. Abdominal exam is benign. No clinical indication for emergent diagnostic work-up. Discharged home in stable condition. BILLING/CODING: This patient encounter does not represent a certified medical emergency. ED Disposition for MSE Clinical Impression: Encounter for medical screening examination Disposition: HOME / SELF CARE / HOMELESS Is pt being admited?: No Does the pt Need Aspirin: No Condition: Stable Instructions: Abdominal Pain (ED), Medical Screening Exam Additional Instructions: Take Tylenol every 4 hours as needed for pain. Do not consume undercooked meat. Follow-up with primary care provider this week. Return to the emergency department immediately for new or worsening symptoms. Referrals: SAVANNA OLIVER MD [Staff Physician] - 3-5 Days Time of Disposition: 02:33
== END 2020-12-03 06:59 | disposition home or self-care (01) ==
LOC: ED 23:49
DX: R10.9 Unspecified abdominal pain (principal); Z13.9 Encounter for screening, unspecified
CPT/HCPCS: 99281

== ENCOUNTER 2021-08-19 12:01 | Emergency (ER) | payer MEDICARE ==
[2021-08-19 12:56] VITALS: BP 151/109
--- NOTE | 2021-08-19 13:41 | XRay Report ---
LEFT KNEE 3 VIEWS INDICATION / CLINICAL INFORMATION: Left knee pain/swelling. COMPARISON: 12/20/18. FINDINGS: BONES / JOINT(S): There are moderate tricompartmental degenerative changes, most prominent involving the medial tibiofemoral joint. There is no evidence of fracture, subluxation, destructive lesion or s ignificant joint effusion. SOFT TISSUES: No significant abnormality. ADDITIONAL FINDINGS: None. IMPRESSION: Degenerative changes without acute abnormality. Signer Name: Edison Jones MD Signed: 08/19/2021 1:36 PM Workstation Name: [id number]
== END 2021-08-21 10:17 | disposition left against medical advice (07) ==
LOC: ED 12:01
DX: R22.42 Localized swelling, mass and lump, left lower limb (principal); Z53.21 Procedure and treatment not carried out due to patient leaving prior to being seen by health care provider